=== PATIENT | female | born 1955 | race Two or more races ===

== ENCOUNTER 2020-11-17 12:56 | Emergency (ER) | payer OTHER, SELFPAY ==
[2020-11-17 13:02] VITALS: BP 120/57; PULSE 100; RESP 18; TEMP 36.9; O2SAT 96; BMI 32.3
[2020-11-17 13:15] LABS: Glucose, Whole Blood 187 mg/dL (60-115)
--- NOTE | 2020-11-17 17:47 | ED_ITS ---
HPI - Dizziness General Chief Complaint: General Medical Stated Complaint: dizzy n/v Time Seen by Provider: 11/17/20 17:44 Source: patient and family Mode of arrival: ambulatory Limitations: no limitations History of Present Illness HPI Narrative: Patient with history of Benign positional vertigo in the past been feeling dizzy today started earlier today with nausea and vomiting and off- balance no headache no fever no chills no significant abdominal pain no tinnitus no upper respiratory symptoms no focal weakness. Also patient noticed blood sugar was elevated to 269 no urinary complaints. Dizziness is positional get worse on head movement specially to the left Related Data Home Medications Medication Instructions Recorded Confirmed acetaminophen 650 mg 1,300 mg PO Q6H tab 03/05/20 07/24/20 tablet,extended release Previous Rx's Medication Instructions Recorded blood-glucose meter ([employer] #1 ea 02/01/20 Lite Meter) atorvastatin 10 mg tablet 10 mg PO DAILY 90 Days #90 tab 07/10/20 blood sugar diagnostic (FreeStyle #100 ea 07/10/20 Lite Strips) cholecalciferol (vitamin D3) 25 25 mcg PO DAILY 90 Days #90 tab 07/10/20 mcg (1,000 unit) tablet dulaglutide 0.75 mg/0.5 mL 0.75 mg SUBCUT QWEEK 30 Days #2.5 07/10/20 subcutaneous pen injector ml (Trulicity) lancets 28 gauge (FreeStyle #100 ea 07/10/20 Lancets) lisinopril 5 mg tablet 5 mg PO DAILY 90 Days #90 tab 07/10/20 metformin 1,000 mg tablet 1,000 mg PO BID 30 Days #60 tab 07/10/20 pantoprazole 40 mg tablet,delayed 40 mg PO DAILY 90 Days #90 tab 07/10/20 release pioglitazone 15 mg tablet 15 mg PO DAILY 90 Days #90 tab 07/10/20 sumatriptan succinate 25 mg tablet 25 mg PO ONCE PRN 30 Days #9 tab 07/10/20 fluoxetine 10 mg capsule 10 mg PO DAILY 90 Days #90 cap 07/17/20 loratadine 10 mg tablet (Allergy 10 mg PO DAILY 90 Days #90 tab 07/17/20 Relief (loratadine)) bacitracin zinc 500 unit/gram 1 appl TOPICAL BID 14 Days #14 g 07/24/20 topical ointment (Antibiotic (bacitracin zinc)) linagliptin 5 mg tablet (Tradjenta) 5 mg PO DAILY #90 tab 10/08/20 meclizine 12.5 mg tablet 12.5 mg PO TID PRN #30 tab 11/17/20 Allergies Allergy/AdvReac Type Severity Reaction Status Date / Time No Known Allergies Allergy Verified 11/17/20 13:02 Review of Systems Review of Systems: Yes all other systems are reviewed and are negative [facility] Past Medical History Medical History Anemia Diabetes mellitus Dizziness Dyslipidemia Essential hypertension GERD (gastroesophageal reflux disease) Hypovitaminosis D Surgical History History of tonsillectomy History of total abdominal hysterectomy Family History Family History Father No problems noted. Mother Hypertension Paternal Aunt Uterine cancer Sister Stomach cancer Sister Thyroid cancer Paternal Grandmother Diabetes Paternal Grandfather Diabetes Social History Social History Alcohol intake: never Patient Tobacco Use Status: Never used Tobacco Second Hand Smoke Exposure: No Advance Directives: No Physical Exam Vital Signs: Vital Signs: Last Vital Signs Temp 98.1 F 11/17/20 20:33 Pulse 89 11/17/20 20:33 Resp 16 11/17/20 20:33 BP 118/59 L 11/17/20 20:33 Pulse Ox 98 11/17/20 20:33 Body Mass Index 32.3 Appearance: Alert. Oriented X3. No acute distress. Eyes: PERRLA, No Nystagmus increased dizziness on head turning to the left side ENT: Pharynx normal. Oral Mucosa moist no temporal artery tenderness Neck: Normal inspection. Neck supple. CVS: Normal heart rate and rhythm. Pulses normal. Respiratory: No respiratory distress. Equal air entry bilateral, no wheezing/rales/rhonchi Abdomen: Soft and nontender. Bowel sounds are present, no mass palpable, no CVA tenderness Skin: Skin warm and dry. Normal skin color. Normal skin turgor. Extremities: No lower extremity edema. No calf tenderness Neuro: Oriented X 3. No motor deficit. No sensory deficit.No cerebellar signs , cranial nerves II-XII intact MDM - Dizziness MDM Narrative Medical decision making narrative: Patient symptom dizziness clinically peripheral benign position vertigo with similar history in the past patient improved after meclizine lab workup was negative patient ambulate in the ER will discharge patient home on meclizine Lab Data Attestation: I reviewed the patient's lab results. Result diagrams: 11/17/20 19:18 11/17/20 19:18 Labs: Lab Results 11/17/20 11/17/20 11/17/20 Range/Units 13:10 19:00 19:18 WBC 10.9 H (4.8-10.8) X10*3/uL RBC 4.35 (4.20-5.50) X10*6/uL Hgb 10.7 L (12.0-16.0) g/dl Hct 33.8 L (37-47) % MCV 77.7 L (80-98) fL MCH 24.6 L (27.0-33.0) pg MCHC 31.7 (31.0-35.0) g/dl RDW 17.2 H (11.0-16.0) % Plt Count 350 (160-400) X10*3/uL MPV 9.8 (9.4-12.3) fL Immature Gran % (Auto) 0.3 (0.0-0.4) % Neut % (Auto) 74.6 H (45-73) % Lymph % (Auto) 19.1 L (20-40) % Bollinger % (Auto) 5.0 (2-11) % Eos % (Auto) 0.6 (0-4) % Baso % (Auto) 0.4 (0-2) % Lymph # (Auto) 2.1 (1.2-4.9) X10*3/uL Bollinger # (Auto) 0.6 (0.1-1.2) X10*3/uL Eos # (Auto) 0.1 (0.0-0.4) X10*3/uL Baso # (Auto) 0.0 (0.0-0.2) X10*3/uL Abs Immat Gran (auto) 0.03 (0.00-0.03) X10*3/uL Absolute Neuts (auto) 8.2 (2.0-8.3) X10*3/uL Absolute Nucleated RBC 0.000 (0.0-0.012) X10*3/uL Nucleated RBC % (auto) 0.0 (0.0-0.2) /100WBC Sodium (135-145) mmol/L Potassium (3.3-5.1) mmol/L Chloride (96-108) mmol/L Carbon Dioxide (22-29) mmol/L Anion Gap (12-20) BUN (9-16) mg/dL Creatinine (0.5-1.4) mg/dL Estim Creat Clear Calc Estimated GFR POC Glucose 187 H 111 (60-115) mg/dL Random Glucose (60-115) mg/dL Calcium (8.4-10.2) mg/dL 11/17/20 Range/Units 19:18 WBC (4.8-10.8) X10*3/uL RBC (4.20-5.50) X10*6/uL Hgb (12.0-16.0) g/dl Hct (37-47) % MCV (80-98) fL MCH (27.0-33.0) pg MCHC (31.0-35.0) g/dl RDW (11.0-16.0) % Plt Count (160-400) X10*3/uL MPV (9.4-12.3) fL Immature Gran % (Auto) (0.0-0.4) % Neut % (Auto) (45-73) % Lymph % (Auto) (20-40) % Bollinger % (Auto) (2-11) % Eos % (Auto) (0-4) % Baso % (Auto) (0-2) % Lymph # (Auto) (1.2-4.9) X10*3/uL Bollinger # (Auto) (0.1-1.2) X10*3/uL Eos # (Auto) (0.0-0.4) X10*3/uL Baso # (Auto) (0.0-0.2) X10*3/uL Abs Immat Gran (auto) (0.00-0.03) X10*3/uL Absolute Neuts (auto) (2.0-8.3) X10*3/uL Absolute Nucleated RBC (0.0-0.012) X10*3/uL Nucleated RBC % (auto) (0.0-0.2) /100WBC Sodium 140 (135-145) mmol/L Potassium 5.0 (3.3-5.1) mmol/L Chloride 104 (96-108) mmol/L Carbon Dioxide 24 (22-29) mmol/L Anion Gap 17 (12-20) BUN 8 L (9-16) mg/dL Creatinine 0.76 (0.5-1.4) mg/dL Estim Creat Clear Calc 63.2 Estimated GFR > 60 POC Glucose (60-115) mg/dL Random Glucose 126 H (60-115) mg/dL Calcium 9.8 D (8.4-10.2) mg/dL Discharge Plan Discharge Clinical Impression: Benign paroxysmal positional vertigo Qualifiers: Laterality: bilateral Qualified Code(s): H81.13 - Benign paroxysmal vertigo, bilateral Patient Disposition: Home, Self-Care Instructions: Benign Paroxysmal Positional Vertigo (ED) Additional Instructions: care and cautions as adv meds as adv for dizziness Prescriptions: New meclizine 12.5 mg tablet 12.5 mg PO TID PRN (Reason: dizziness) Qty: 30 RF: 0 No Action (DME) blood-glucose meter [FreeStyle Lite Meter] Kit See Rx Instructions .ROUTE .MEDSUPPLY Qty: 1 RF: 0 atorvastatin 10 mg tablet 10 mg PO DAILY 90 Days Qty: 90 RF: 3 (DME) FreeStyle Lite Strips Strip See Rx Instructions .ROUTE .MEDSUPPLY Qty: 100 RF: 11 cholecalciferol (vitamin D3) 25 mcg (1,000 unit) tablet 25 mcg PO DAILY 90 Days Qty: 90 RF: 3 Trulicity 0.75 mg/0.5 mL pen injector 0.75 mg subcut QWEEK 30 Days Qty: 2.5 RF: 6 (DME) lancets [FreeStyle Lancets] 28 gauge misc See Rx Instructions .ROUTE .MEDSUPPLY Qty: 100 RF: 11 lisinopril 5 mg tablet 5 mg PO DAILY 90 Days Qty: 90 RF: 1 metformin 1,000 mg tablet 1,000 mg PO BID 30 Days Qty: 60 RF: 6 pantoprazole 40 mg tablet,delayed release (DR/EC) 40 mg PO DAILY 90 Days Qty: 90 RF: 3 pioglitazone 15 mg tablet 15 mg PO DAILY 90 Days Qty: 90 RF: 1 sumatriptan succinate 25 mg tablet 25 mg PO ONCE PRN (Reason: migraine headache) 30 Days Qty: 9 RF: 6 fluoxetine 10 mg capsule 10 mg PO DAILY 90 Days Qty: 90 RF: 2 loratadine [Allergy Relief (loratadine)] 10 mg tablet 10 mg PO DAILY 90 Days Qty: 90 RF: 3 Tradjenta 5 mg tablet 5 mg PO DAILY Qty: 90 RF: 0 acetaminophen 650 mg tablet extended release 1,300 mg PO Q6H RF: 0 bacitracin zinc [Antibiotic (bacitracin zinc)] 500 unit/gram ointment 1 appl topical BID 14 Days Qty: 14 RF: 2 Interventions: ED Discharge Assessment Last Done: 11/17/20 20:41 Discharge Date/Time: 11/17/20 20:42 Print Language: Irish
[2020-11-17] MEDS: 0.9 % Sodium Chloride 1,000 ML 999 ML IVCONT (19:19)
[2020-11-17] MEDS: ondansetron HCL 4 MG/2 ML VIAL IVPUSH (19:21)
[2020-11-17] MEDS: Meclizine HCl 25 MG TABLET PO (19:24)
[2020-11-17 19:28] LABS: MANUAL DIFF FLAG NO
[2020-11-17 19:29] LABS: Basophils Percent Auto 0.4 % (0-2); Eosinophils Absolute Auto 0.1 X10*3/uL (0.0-0.4); Eosinophils Percent Auto 0.6 % (0-4); Hematocrit 33.8 % (37-47); Hemoglobin 10.7 g/dl (12.0-16.0); Imm Gran Abs Auto 0.03 X10*3/uL (0.00-0.03); Imm Gran Pct Auto 0.3 % (0.0-0.4); Lymphocytes Absolute Auto 2.1 X10*3/uL (1.2-4.9); Lymphocytes Percent Auto 19.1 % (20-40); Mean Corpuscular HGB Conc 31.7 g/dl (31.0-35.0); Mean Corpuscular Hemoglobin 24.6 pg (27.0-33.0); Mean Corpuscular Volume 77.7 fL (80-98); Mean Platelet Volume 9.8 fL (9.4-12.3); Monocytes Absolute Auto 0.6 X10*3/uL (0.1-1.2); Neutrophils Absolute Auto 8.2 X10*3/uL (2.0-8.3); Neutrophils Percent Auto 74.6 % (45-73); Platelet Count 350 X10*3/uL (160-400); Red Blood Count 4.35 X10*6/uL (4.20-5.50); Red Cell Distribution Width 17.2 % (11.0-16.0); White Blood Count 10.9 X10*3/uL (4.8-10.8)
[2020-11-17 19:30] LABS: Glucose, Whole Blood 111 mg/dL (60-115)
[2020-11-17 19:41] LABS: Anion Gap 17 (12-20); Blood Urea Nitrogen 8 mg/dL (9-16); Calcium 9.8 mg/dL (8.4-10.2); Carbon Dioxide 24 mmol/L (22-29); Chloride 104 mmol/L (96-108); Creatinine Clr Calc Pharmacy 63.2; Estimated Glomerular Filt Rate > 60; Glucose Random 126 mg/dL (60-115); Sodium 140 mmol/L (135-145)
[2020-11-17 20:33] VITALS: BP 118/59; PULSE 89; RESP 16; TEMP 36.7; O2SAT 98
== END 2020-11-17 20:42 | disposition home or self-care (01) ==
PROVIDERS: Emergency Provider Internal Medicine; PCP Internal Medicine
DX: H81.13 Benign paroxysmal vertigo, bilateral (principal); R11.2 Nausea with vomiting, unspecified; Z79.899 Other long term (current) drug therapy
CPT/HCPCS: 36415; 80048; 82947; 85025; 96361; 96374; 99284; J2405

== ENCOUNTER 2020-12-24 13:00 | Outpatient (RCR) | payer OTHER, SELFPAY ==
[2020-12-17 13:53] VITALS: BP 116/80; PULSE 91
--- NOTE | 2020-12-17 14:55 | MHC.PT.EP ---
[facility] [place] Office [place] Office [place] Office [address] Corey Puckett [address] [phone] F: [phone] F: [phone] F: [phone] F: [phone] Physical Therapy Plan of Care Date of Evaluation: Date of Surgery: NA Diagnosis: vertigo Assessment: Shruthi presents with s/s consistent with BPPV and hypofunction of vestibular system. Upon exam we were able to perform testing for right posterior canalithiasis and performed canalith repositioning maneuver. Due to increased nausea we did not retest this session. Next we will plan t o assess other canals and progress balance assessment. Pt is a good candidate for skilled PT due to age, potential remediation of impairments, typical disease/condition progression and prognosis, comorbidities, and motivation. pt would benefit from tailored program of therapeutic activities, functional training, gait training, postural education, neuromuscular re-education, and modalities as needed. Frequency and Duration: The patient will be seen 2 x week for 3 weeks Short Term Goals: 1. Pt will be (-) for nystagmus of reports of vertigo in all diagnostic directions B to resolutions of BPPV in 2 weeks [facility] Specialist Goals: 5 weeks: 1. I with HEP 2. Improve DGI to 20/24 3. Pt to be able to functionally move in all planes without provocation of dizziness and return to PLOF in 4 weeks 4. Pt to be educated on sx and indications to return to therapy when needed Treatment Plan: Modalities to reduce pain, spasms and effusion. Manual therapy to restore motion and function. Therapeutic exercise to improve strength and flexibility. Neuromuscular re-education for posture and balance. Therapeutic activities to return to functional activities of daily living. Electronically signed by: Pam Escoto PT, DPT Please sign and return to therapist. Thank you for your referral.
--- NOTE | 2020-12-24 15:25 | MHC.PT.DC ---
[facility] [place] Office [place] Office [place] Office [address] Corey Puckett [address] [phone] F: [phone] F: [phone] F: [phone] F: [phone] Physical Therapy Discharge Report Diagnosis: vertigo Date of Surgery: NA Date of Evaluation: 12/17/20 Date of Discharge: 12/24/20 Treatments to Date: 3 Cancellations to Date: 0 No Shows to Date: 0 Discharge Status: Achieved Goals Improved Function Independent with HEP Discharge Summary: Pt negative for bppv. Pt was not provoked with VOR activity. The pt was educated about mechanisms of balance. However at this time she did not wish to participate in balance therapy. She said, I would like to think about it Pt d/c at this time from skilled PT. Electronically signed by: Vi Dia PT DPT Please sign and return to therapist. Thank you for your referral.
== END 2020-12-24 15:24 | disposition home or self-care (01) ==
LOC: HO.PT 13:00
PROVIDERS: PCP Internal Medicine; Visit Provider Internal Medicine Medical Oncology
DX: R42 Dizziness and giddiness (principal)
CPT/HCPCS: 95992; 97112; 97162

== ENCOUNTER 2021-04-05 08:22 | Outpatient (REF) | payer OTHER, SELFPAY ==
[2021-04-05 09:20] LABS: Baso%MD 0.4 %; Eos%MD 3.4 %; Hematocrit 34.1 % (37.0-47.0); Hemoglobin 10.7 g/dl (12.0-16.0); IG%MD 0.3 %; Lymph%MD 24.3 %; Mean Corpuscular HGB Conc 31.4 g/dl (31.0-35.0); Mean Corpuscular Hemoglobin 25.1 pg (27.0-33.0); Mean Platelet Volume 9.8 fL (9.4-12.3); Mono%MD 6.4 %; Neut%MD 65.2 %; Platelet Count 332 X10*3/uL (160-400); Red Blood Count 4.26 X10*6/uL (4.20-5.50); Red Cell Distribution Width 15.6 % (11.0-16.0)
[2021-04-05 09:42] LABS: Alanine Aminotransferase < 6 U/L (0-31); Albumin Level 3.7 g/dL (3.5-5.0); Alkaline Phosphatase 82 U/L (39-117); Anion Gap 11 (12-20); Aspartate Amino Transferase 9 U/L (5-31); Bilirubin Total 0.2 mg/dL (0.0-1.0); Blood Urea Nitrogen 10 mg/dL (9-16); Calcium 9.7 mg/dL (8.4-10.2); Carbon Dioxide 31 mmol/L (22-29); Chloride 101 mmol/L (96-108); Cholesterol 132 mg/dL; Estimated Glomerular Filt Rate > 60; Glucose Fasting 132 mg/dL (60-99); HDL Cholesterol 44 mg/dL; Iron 34 mcg/dL (30-160); LDL Cholesterol Calculated 58 mg/dl; Percent Iron Saturation 10 % (15-50); Sodium 138 mmol/L (135-145); Total Iron Binding Capacity 344 mcg/dL (228-428); Total Protein 7.3 g/dL (6.5-8.0); Triglycerides 151 mg/dL; Unsaturated Iron Binding 310 ug/dL
[2021-04-05 10:12] LABS: Band Neutrophils Percent 0 % (3-5); Eosinophils Absolute Manual 0.1 X10*3/uL (0.0-0.4); Eosinophils Percent Manual 2 % (0-4); Lymphocytes Absolute Manual 1.6 X10*3/uL (1.2-4.9); Lymphocytes Percent Manual 23 % (20-40); Monocytes Absolute Manual 0.2 X10*3/uL (0.1-1.2); Monocytes Percent Manual 3 % (2-11); Neutrophils Percent Manual 72 % (45-73)
[2021-04-05 10:13] LABS: Hypochromasia 2+ (15-30) /OIF; Platelet Estimate NORMAL (NORMAL); Platelet Morphology Comment NORMAL; RBC Morphology NOTED
[2021-04-05 13:17] LABS: Creatinine Urine 65.72 mg/dL; Microalbumin Urine < 5.0 mg/L
[2021-04-10 17:41] LABS: Vitamin D 25-OH, D2 <4 ng/mL; Vitamin D 25-OH, D3 48 ng/mL; Vitamin D 25-OH, Total 48 ng/mL (30-100)
== END 2021-04-05 08:23 | disposition home or self-care (01) ==
LOC: HO.LAB 08:22
PROVIDERS: Internal Medicine Medical Oncology; PCP Internal Medicine; Visit Provider Internal Medicine
DX: D72.10 Eosinophilia, unspecified (principal); E11.9 Type 2 diabetes mellitus without complications; D64.9 Anemia, unspecified; E78.5 Hyperlipidemia, unspecified; E55.9 Vitamin D deficiency, unspecified
CPT/HCPCS: 36415; 80053; 80061; 82043; 82306; 83540; 85007; 85025; 85027

== ENCOUNTER 2021-09-04 09:20 | Outpatient (REF) | payer OTHER, SELFPAY ==
--- NOTE | ~2021-09-04 | MM_ITS ---
EXAMINATION: MM SCREENING DIGITAL BREAST TOMOSYNTHESIS, BILATERAL CLINICAL INFORMATION: Screening. Asymptomatic. No known family history breast cancer. The lifetime risk of breast cancer based on the Tyrer-Cuzick Model is 3%. COMPARISON: Mammography: 11/02/2018, 06/26/2017, 05/29/2016 TECHNIQUE: Digital breast tomosynthesis is performed in both the craniocaudal and mediolateral oblique views along with computer-aided detection (CAD). Synthesized 2D images are generated from the tomosynthesis. FINDINGS: The breasts are almost entirely fatty (ACR BI-RADS breast composition Category a). Background stromal markings are stable. No interval mass or developing density. Incidental intramammary node again seen posterior upper outer left breast and some stable low right axillary tail nodes again noted. No significant changes. No abnormal calcifications. The skin contours are smooth. MM/MM tomosynthesis screening BI IMPRESSION: No mammographic evidence of malignancy. ASSESSMENT: BI-RADS 2: Benign RECOMMENDATION: Routine annual mammography screening. This patient's information was entered into a reminder system with a target due date for their next mammogram.
== END 2021-09-04 09:21 | disposition home or self-care (01) ==
LOC: HO.MAMMO 09:20
PROVIDERS: Visit Provider Internal Medicine
DX: Z12.31 Encounter for screening mammogram for malignant neoplasm of breast (principal)
CPT/HCPCS: 77063; 77067

== ENCOUNTER 2022-01-06 08:35 | Outpatient (REF) | payer OTHER, SELFPAY ==
[2022-01-06 10:46] LABS: Creatinine Urine 37.45 mg/dL; Microalbumin Urine < 5.0 mg/L
== END 2022-01-06 08:36 | disposition home or self-care (01) ==
LOC: HO.LAB 08:35
PROVIDERS: PCP Internal Medicine; Visit Provider Internal Medicine
DX: E55.9 Vitamin D deficiency, unspecified (principal); E11.9 Type 2 diabetes mellitus without complications; E78.5 Hyperlipidemia, unspecified; D72.10 Eosinophilia, unspecified
CPT/HCPCS: 36415; 82043; 82306

== ENCOUNTER 2022-05-19 08:30 | Outpatient (REF) | payer OTHER, SELFPAY ==
[2022-05-19 10:06] LABS: Alanine Aminotransferase 7 U/L (0-31); Albumin Level 3.5 g/dL (3.5-5.0); Alkaline Phosphatase 71 U/L (39-117); Anion Gap 13 (12-20); Aspartate Amino Transferase 8 U/L (5-31); Bilirubin Total 0.2 mg/dL (0.0-1.0); Blood Urea Nitrogen 16 mg/dL (9-16); Calcium 8.9 mg/dL (8.4-10.2); Carbon Dioxide 27 mmol/L (22-29); Chloride 104 mmol/L (96-108); Cholesterol 143 mg/dL; Estimated Glomerular Filt Rate > 60; Glucose Fasting 139 mg/dL (60-99); HDL Cholesterol 47 mg/dL; LDL Cholesterol Calculated 68 mg/dl; Potassium 4.9 mmol/L (3.3-5.1); Sodium 139 mmol/L (135-145); Total Protein 6.5 g/dL (6.5-8.0); Triglycerides 142 mg/dL
[2022-05-19 10:13] LABS: Vitamin D 25-OH Total 53.5 ng/mL (>30)
[2022-05-19 10:35] LABS: Creatinine Urine 48.31 mg/dL; Microalbumin Urine < 5.0 mg/L
== END 2022-05-19 08:31 | disposition home or self-care (01) ==
LOC: HO.LAB 08:30
PROVIDERS: PCP Internal Medicine; Visit Provider Internal Medicine
DX: E55.9 Vitamin D deficiency, unspecified (principal); E11.9 Type 2 diabetes mellitus without complications; E78.5 Hyperlipidemia, unspecified; M51.36 Other intervertebral disc degeneration, lumbar region
CPT/HCPCS: 36415; 80053; 80061; 82043; 82306

== ENCOUNTER 2022-09-16 08:09 | Outpatient (REF) | payer OTHER, SELFPAY ==
[2022-09-16 09:32] LABS: Alanine Aminotransferase 5 U/L (0-31); Albumin Level 3.6 g/dL (3.5-5.0); Alkaline Phosphatase 71 U/L (39-117); Anion Gap 9 (12-20); Aspartate Amino Transferase 9 U/L (5-31); Bilirubin Total 0.2 mg/dL (0.0-1.0); Blood Urea Nitrogen 14 mg/dL (9-16); Calcium 9.2 mg/dL (8.4-10.2); Carbon Dioxide 30 mmol/L (22-29); Chloride 104 mmol/L (96-108); Cholesterol 145 mg/dL; Estimated Glomerular Filt Rate > 60; Glucose Fasting 118 mg/dL (60-99); HDL Cholesterol 48 mg/dL; LDL Cholesterol Calculated 73 mg/dl; Potassium 4.1 mmol/L (3.3-5.1); Sodium 139 mmol/L (135-145); Total Protein 7.3 g/dL (6.5-8.0); Triglycerides 123 mg/dL
[2022-09-16 09:47] LABS: Vitamin D 25-OH Total 52.5 ng/mL (>30)
[2022-09-16 11:44] LABS: Creatinine Urine 51.02 mg/dL; Microalbum/Creatinine Ratio Ur 13.7 ug/mg cr
== END 2022-09-16 08:10 | disposition home or self-care (01) ==
LOC: HO.LAB 08:09
PROVIDERS: PCP Internal Medicine; Visit Provider Internal Medicine
DX: E11.9 Type 2 diabetes mellitus without complications (principal); E55.9 Vitamin D deficiency, unspecified; E78.5 Hyperlipidemia, unspecified
CPT/HCPCS: 36415; 80053; 80061; 82043; 82306

== ENCOUNTER 2022-09-17 11:13 | Outpatient (REF) | payer OTHER, SELFPAY ==
--- NOTE | ~2022-09-17 | MM_ITS ---
EXAMINATION: MM SCREENING DIGITAL BREAST TOMOSYNTHESIS, BILATERAL CLINICAL INFORMATION: Screening. Asymptomatic. The lifetime risk of breast cancer based on the Tyrer-Cuzick Model is 3.9%. COMPARISON: Mammography: 11/02/2018, 06/26/2017, 05/28/2016, and dating back to 2013. TECHNIQUE: Digital breast tomosynthesis is performed in both the craniocaudal and mediolateral oblique views along with computer-aided detection (CAD). Synthesized 2D images are generated from the tomosynthesis. FINDINGS: There are scattered areas of fibroglandular density (ACR BI-RADS breast composition Category b). There are no suspicious masses, suspicious grouped calcifications, or areas of architectural distortion. The parenchymal pattern is stable from prior exams. MM/MM tomosynthesis screening BI IMPRESSION: No mammographic evidence of malignancy. ASSESSMENT: BI-RADS BI-RADS 1 - Negative RECOMMENDATION: Routine annual mammography screening. 1 year F/U This examination should not preclude the clinical evaluation of a suspicious palpable abnormality. This patient's information was entered into a reminder system with a target due date for their next mammogram.
== END 2022-09-17 11:14 | disposition home or self-care (01) ==
LOC: HO.MAMMO 11:13
PROVIDERS: PCP Internal Medicine; Visit Provider Internal Medicine
DX: Z12.31 Encounter for screening mammogram for malignant neoplasm of breast (principal)
CPT/HCPCS: 77063; 77067

== ENCOUNTER → 2022-09-17 11:30 | Outpatient (BNV) | payer OTHER, SELFPAY | PROVIDERS: PCP Internal Medicine; Visit Provider Radiology Diagnostic Radiology | DX: Z12.31 Encounter for screening mammogram for malignant neoplasm of breast (principal) | CPT/HCPCS: 77063; 77067 ==

== ENCOUNTER 2022-09-23 13:44 | Outpatient (AMB) | payer OTHER, SELFPAY ==
--- NOTE | 2022-09-23 13:49 | MHC.PC.OV ---
Vital Signs 09/23/22 13:50 Height 4 ft 11 in Weight 159 lb BMI 32.1 BP 110/62 Blood Pressure Location Lt brachial Position Sitting Intake Visit Reasons: bp,dm Intake Note: Patient here for a follow up BP, DM Radiation Physicist Required: No Accompanied by: Spouse Allergies No Known Allergies Allergy (Verified 09/23/22 14:04) Medication List - Last Reconciled 09/23/22 by Ginger Monique MD acetaminophen ER 1,300 mg PO Q6H atorvastatin 10 mg PO DAILY 90 days blood sugar diagnostic (FreeStyle Lite Strips) Use test strip twice a day as needed blood-glucose meter (FreeStyle Lite Meter kit) As directed cholecalciferol (vitamin D3) 25 mcg PO DAILY 90 days dulaglutide (Trulicity) 1.5 mg (0.5 mL) subcut QWEEK 90 days ferrous sulfate 325 mg PO DAILY 90 days fluoxetine 10 mg PO DAILY 90 days incontinence pad, liner, disp Use 1 pad twice a day lancets (FreeStyle Lancets) Use lancet twice a day as needed linagliptin (Tradjenta) 5 mg PO DAILY lisinopril 5 mg PO DAILY 90 days loratadine (Allergy Relief (loratadine)) 10 mg PO DAILY 90 days meclizine 12.5 mg PO TID PRN 30 days metformin 1,000 mg PO BID 30 days pantoprazole 40 mg PO DAILY 90 days pioglitazone 30 mg PO DAILY 90 days sumatriptan succinate 25 mg PO ONCE PRN 30 days [wheelchair As directed] Tobacco use date assessed: 05/22/22 Fall risk assessment: No Falls in past year Last assessed Fall Risk: 09/23/22 Dental Screening Dental Screen Date: 09/23/22 Did you have a dental visit in the last 12 months?: Yes Did you have a dental problem in the last 6 months where you did not have access to dental care?: No Was dental information given to patient?: Patient has dentist HPI HPI Comments History of Present Illness Details This is a 67-year-old female with diabetes mellitus type 2, dyslipidemia, GERD and mild recurrent major depression that comes today for follow-up on her conditions. She is accompanied by and is currently in a wheelchair to be use for appointments or when traveling long distance. A1c within goal. LDL close to goal and I recommend to take atorvastatin every night. GERD stable with medications. Depression stable with SSRIs. Denies any chest pain or shortness of breath. Complains of bilateral leg weakness that has been present for over a year. [facility] Medical History Anemia BPPV (benign paroxysmal positional vertigo) Diabetes mellitus Dizziness Dyslipidemia Essential hypertension GERD (gastroesophageal reflux disease) Hypovitaminosis D Lumbar degenerative disc disease Mild recurrent major depression Urge urinary incontinence Surgical History History of tonsillectomy History of total abdominal hysterectomy Family History Father No problems noted. Mother Hypertension Paternal Aunt Uterine cancer Sister Stomach cancer Sister Thyroid cancer Paternal Grandmother Diabetes Paternal Grandfather Diabetes Social History Household Members: Spouse Housing: Apartment Are you a primary care tech to a significant other at home: No Do you presently have visiting nurse or other home services: Yes Alcohol intake: never Patient Tobacco Use Status: Never used Tobacco e-Cigarette/Vaping Use: Never Used Second Hand Smoke Exposure: No service: No Current occupational status: disabled Cognitive needs: Yes Hearing needs: No Vision needs: Yes Questionnaire Thrive Questionnaire Date Thrive assessed: 05/22/22 TUNDE-7 AMB Questionnaire TUNDE-7 Date TUNDE - 7 assessed: 05/22/22 Source: Developed by Drs. Tj Romano, Shawna Marcano, Kirt Bailey and colleagues, with an educational georgie from [employer] ([employer]). Review of Systems Const All systems reviewed & are unremarkable except as noted in HPI and below Eyes Reports no additional complaints, Denies change in vision and Denies other visual disturbances Card Denies chest pain at rest, Denies chest pain with activity, Denies edema, Denies irregular heart rhythm, Denies claudication, Denies dyspnea, Denies dyspnea on exertion, Denies orthopnea, Denies paroxysmal nocturnal dyspnea and Denies slow heart rate Resp Denies cough, Denies dyspnea and Denies dyspnea on exertion GI Denies abdominal pain, Denies change in bowel habits, Denies excessive flatus, Denies nausea and Denies vomiting Denies urinary incontinence, Denies urinary hesitancy and Denies urinary urgency Musc Denies abnormal gait, Denies atrophy, Denies deformity and Denies limited range of motion Skin/Breast Denies bleeding lesions, Denies changing lesions and Denies rash Neuro Denies abnormal gait and Denies lack of coordination Physical exam (Primary Care) Vital Signs: Last Vital Signs BP 110/62 09/23/22 13:50 BMI result Body Mass Index 32.1 Tobacco/Smoking Status: Tobacco use Status Tobacco use date assessed 05/22/22 09/23/22 13:59 Patient Tobacco Use Status Never used Tobacco 09/23/22 13:59 e-Cigarette/Vaping Use Never Used 09/23/22 13:59 Thrive Assessment: Date of Thrive Assessment Date Thrive assessed 05/22/22 09/23/22 13:59 Eyes General: appearance normal, both eyes and all related structures Eyelids: Yes eyelids normal Conjunctivae: conjunctivae normal Neck Neck: Yes normal visual inspection and Yes supple Resp Effort & Inspection: normal respiratory effort Auscultation: clear to auscultation bilaterally Cardio Jugular venous distension: no JVD Rate: regular rate Rhythm: regular rhythm Heart sounds: S1 normal heart sound present and S2 normal heart sound present Extrem General: Yes full ROM Results AMB Hemoglobin A1c AMB Hemoglobin A1c 6.8 % Last Edit by CHRIS Womack on 09/23/22 14:02 Results Reviewed Results Reviewed: Laboratory Last Values Hgb A1c (Clinic) 6.8 % (4.0-6.0) H 09/23/22 13:48 Assessment and Plan Assessment & Plan (1) Diabetes mellitus: Code(s): E11.9 - Type 2 diabetes mellitus without complications Qualifiers: Diabetes mellitus type: type 2 Diabetes mellitus [facility] insulin use: without [facility] use Diabetes mellitus complication status: without complication Qualified Code(s): E11.9 - Type 2 diabetes mellitus without complications Plan: Continue Trulicity, metformin, Tradjenta and Actos. A1c goal is equal or less than 7%. (2) GERD (gastroesophageal reflux disease): Code(s): K21.9 - Gastro-esophageal reflux disease without esophagitis Qualifiers: Esophagitis presence: esophagitis presence not specified Qualified Code(s): K21.9 - Gastro-esophageal reflux disease without esophagitis Plan: Continue PPIs as needed (3) Mild recurrent major depression: Code(s): F33.0 - Major depressive disorder, recurrent, mild Plan: Continue SSRIs (4) Dyslipidemia: Code(s): E78.5 - Hyperlipidemia, unspecified Plan: Continue statin. LDL goal is less than 70 Orders: Orders Complete Blood Count Auto Diff Today D64.9 - Anemia, unspecified IRON PROFILE Today D64.9 - Anemia, unspecified Vitamin D 25-OH Total Today E55.9 - Vitamin D deficiency, unspecified Lipid Panel Today E78.5 - Hyperlipidemia, unspecified Microalbumin, Random (w Creat) Today E11.9 - Type 2 diabetes mellitus without complications Comprehensive [place]. 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
[2022-09-23 13:50] VITALS: BP 110/62; BMI 32.1
== END 2022-09-23 14:17 | disposition home or self-care (01) ==
PROVIDERS: PCP Internal Medicine; Visit Provider Internal Medicine
DX: E11.9 Type 2 diabetes mellitus without complications (principal); K21.9 Gastro-esophageal reflux disease without esophagitis; F33.0 Major depressive disorder, recurrent, mild; E78.5 Hyperlipidemia, unspecified
CPT/HCPCS: 83036; 99214

== ENCOUNTER 2023-01-19 12:40 | Outpatient (AMB) | payer OTHER, SELFPAY ==
--- NOTE | 2023-01-19 12:51 | MHC.PC.OV ---
Vital Signs 01/19/23 12:54 Height 4 ft 11 in Weight 160 lb BMI 32.3 BP 112/76 Blood Pressure Location Lt brachial Position Sitting Intake Visit Reasons: physical Intake Note: Patient here for a physical exam, c/o left shoulder pain Special Education Curriculum Specialist Required: No Accompanied by: Spouse Allergies No Known Allergies Allergy (Verified 01/19/23 13:11) Medication List - Last Reconciled 01/19/23 by Ginger Monique MD acetaminophen ER 1,300 mg PO Q6H [adult diapers As directed] atorvastatin 10 mg PO DAILY 90 days blood sugar diagnostic ([employer] Ultra Test strips) test once per day blood-glucose meter ([employer] Ultra2 Meter) test once per day cholecalciferol (vitamin D3) 25 mcg PO DAILY 90 days dulaglutide (Trulicity) 1.5 mg (0.5 mL) subcut QWEEK 90 days ferrous sulfate 325 mg PO DAILY 90 days fluoxetine 10 mg PO DAILY 90 days incontinence pad, liner, disp Use 1 pad twice a day lancets ([employer] UltraSoft 2 Lancet) test once per day linagliptin (Tradjenta) 5 mg PO DAILY lisinopril 5 mg PO DAILY 90 days loratadine (Allergy Relief (loratadine)) 10 mg PO DAILY 90 days magnesium 250 mg PO DAILY 90 days meclizine 12.5 mg PO TID PRN 30 days metformin 1,000 mg PO BID 30 days pantoprazole 40 mg PO DAILY 90 days pioglitazone 30 mg PO DAILY 90 days sumatriptan succinate 25 mg PO ONCE PRN 30 days [wheelchair with bigger wheels As directed] Tobacco use date assessed: 05/22/22 Fall risk assessment: No Falls in past year Last assessed Fall Risk: 01/19/23 Dental Screening Dental Screen Date: 01/19/23 Did you have a dental visit in the last 12 months?: No Did you have a dental problem in the last 6 months where you did not have access to dental care?: No Was dental information given to patient?: Patient has dentist HPI HPI Comments History of Present Illness Details This is a 68-year-old female with diabetes mellitus type 2 1 mild recurrent major depression that comes for her physical exam. A1c elevated and I will increase Actos from 30 mg to 45 mg. Depression stable with medications. Last mammogram was August 2022. Last Cologuard was 2020 and this will be repeated. Use a wheelchair to be transported. Would like a wheelchair with peak will also so that she can move it herself. [facility] Medical History Mild recurrent major depression Urge urinary incontinence Lumbar degenerative disc disease BPPV (benign paroxysmal positional vertigo) Dizziness Essential hypertension Hypovitaminosis D Dyslipidemia Anemia GERD (gastroesophageal reflux disease) Diabetes mellitus Surgical History History of total abdominal hysterectomy History of tonsillectomy Family History (Updated 01/19/23 @ 13:12 by Ginger Monique MD) Father Leukemia Mother Hypertension Colon cancer Paternal Aunt Uterine cancer Sister Stomach cancer Sister Thyroid cancer Paternal Grandmother Diabetes Paternal Grandfather Diabetes Household Members: Spouse Housing: Apartment Are you a primary acute care surgeon to a significant other at home: No Do you presently have visiting nurse or other home services: Yes Alcohol intake: never Patient Tobacco Use Status: Never used Tobacco e-Cigarette/Vaping Use: Never Used Second Hand Smoke Exposure: No service: No Current occupational status: disabled Cognitive needs: Yes Hearing needs: No Vision needs: Yes Questionnaire Thrive Questionnaire Date Thrive assessed: 05/22/22 TUNDE-7 AMB Questionnaire TUNDE-7 Date TUNDE - 7 assessed: 05/22/22 Source: Developed by Drs. Tj Romano, Shawna Marcano, Kirt Bailey and colleagues, with an educational georgie from [employer]. Review of Systems Const All systems reviewed & are unremarkable except as noted in HPI and below Eyes Reports no additional complaints, Denies change in vision and Denies other visual disturbances Card Denies chest pain at rest, Denies chest pain with activity, Denies edema, Denies irregular heart rhythm, Denies claudication, Denies dyspnea, Denies dyspnea on exertion, Denies orthopnea, Denies paroxysmal nocturnal dyspnea and Denies slow heart rate Resp Denies cough, Denies dyspnea and Denies dyspnea on exertion GI Denies abdominal pain, Denies change in bowel habits, Denies excessive flatus, Denies nausea and Denies vomiting Denies urinary incontinence, Denies urinary hesitancy and Denies urinary urgency Musc Denies abnormal gait, Denies atrophy, Denies deformity and Denies limited range of motion Skin/Breast Denies bleeding lesions, Denies changing lesions and Denies rash Neuro Denies abnormal gait and Denies lack of coordination Physical exam (Primary Care) Vital Signs: Last Vital Signs BP 112/76 01/19/23 12:54 BMI result Body Mass Index 32.3 Tobacco/Smoking Status: Tobacco use Status Tobacco use date assessed 05/22/22 01/19/23 12:54 Patient Tobacco Use Status Never used Tobacco 01/19/23 12:54 e-Cigarette/Vaping Use Never Used 01/19/23 12:54 Thrive Assessment: Date of Thrive Assessment Date Thrive assessed 05/22/22 01/19/23 12:54 Const Orientation/consciousness: patient oriented x3 Limitations: wheelchair HENMT Head: Yes normal to inspection, Yes normocephalic and Yes atraumatic Ears: external ears normal Eyes General: appearance normal, both eyes and all related structures Eyelids: Yes eyelids normal Conjunctivae: conjunctivae normal Neck Neck: Yes normal visual inspection and Yes supple Resp Effort & Inspection: normal respiratory effort Auscultation: clear to auscultation bilaterally Cardio Jugular venous distension: no JVD Rate: regular rate Rhythm: regular rhythm Heart sounds: S1 normal heart sound present and S2 normal heart sound present GI Inspection: Yes normal to inspection Palpation (GI): Soft to palpation and nontender Auscultation: normal bowel sounds Skin General skin exam: no rashes or lesions noted Neuro General: patient oriented x3 and no focal motor deficits Psych Appearance: grossly normal Office Procedures Flu Questionnaire Does the patient have a severe egg allergy?: No Results AMB Hemoglobin A1c AMB Hemoglobin A1c 8.0 % Last Edit by CHRIS Womack on 01/19/23 13:05 Immunizations flu vacc [id number] 6mos up(PF) 60 mcg(15 mcgx4)/0.5 mL IM syringe Performing Provider: Ginger Monique MD [facility] Documented (not given) by: CHRIS Womack on 01/19/23 13:04 Reason Not Given: Patient Refused Results Reviewed Results Reviewed: Laboratory Last Values Hgb A1c (Clinic) 8.0 % (4.0-6.0) H 01/19/23 12:51 Assessment and Plan Assessment & Plan (1) Physical exam: Code(s): Z00.00 - Encounter for general adult medical examination without abnormal findings Plan: Repeat in a year. (2) Mild recurrent major depression: Code(s): F33.0 - Major depressive disorder, recurrent, mild Plan: Continue fluoxetine. (3) Diabetes mellitus: Code(s): E11.9 - Type 2 diabetes mellitus without complications Qualifiers: Diabetes mellitus type: type 2 Diabetes mellitus senior living insulin use: without senior living use Diabetes mellitus complication status: without complication Qualified Code(s): E11.9 - Type 2 diabetes mellitus without complications Plan: Continue Trulicity and metformin. A1c goal is equal or less than 7%. Increase Actos from 30-45 mg. Orders: Orders AMB Hemoglobin A1c Today E11.9 - Type 2 diabetes mellitus without complications Influenza [id number] Immunization Today Z23 - Encounter for immunization Referrals Cologuard Test Z12.11 - Encounter for screening for malignant neoplasm of colon, Z12.12 - Encounter for screening for malignant neoplasm of rectum Medications: New pioglitazone 45 mg PO DAILY 90 days 90 tabs 1RF diclofenac sodium 1% (Aleve (diclofenac)) apply to single elbow, wrist or hand; for hand includes palm/fingers/back of hand 2 grams topical QID 30 days 100 grams 0RF Discontinued pioglitazone Discontinued Reason: Patient Completed Course 30 mg PO DAILY 90 days 90 tabs 1RF E11.9 - Type 2 diabetes mellitus without complications Coding Level of Care Code Est Pt Prev Care >65y(29670) Diagnoses Physical exam Z00.00 Mild recurrent major depression F33.0 Type 2 diabetes mellitus without complication, without long-term current use of insulin E11.9 Diabetes mellitus type: type 2 Diabetes mellitus senior living insulin use: without watermaster use Diabetes mellitus complication status: without complication Time Spent (min) 32
[2023-01-19 12:54] VITALS: BP 112/76; BMI 32.3
== END 2023-01-19 13:20 | disposition home or self-care (01) ==
PROVIDERS: Visit Provider Internal Medicine
DX: Z00.00 Encounter for general adult medical examination without abnormal findings (principal); F33.0 Major depressive disorder, recurrent, mild; E11.9 Type 2 diabetes mellitus without complications; Z23 Encounter for immunization
CPT/HCPCS: 83036; 99397

== ENCOUNTER 2023-05-05 08:30 | Outpatient (REF) | payer OTHER, SELFPAY ==
[2023-05-05 08:41] LABS: MANUAL DIFF FLAG NO
[2023-05-05 09:19] LABS: Basophils Percent Auto 0.6 % (0-2); Eosinophils Absolute Auto 0.3 X10*3/uL (0.0-0.4); Eosinophils Percent Auto 3.5 % (0-4); Hematocrit 31.3 % (37.0-47.0); Imm Gran Abs Auto 0.02 X10*3/uL (0.00-0.03); Imm Gran Pct Auto 0.3 % (0.0-0.4); Lymphocytes Absolute Auto 2.1 X10*3/uL (1.2-4.9); Lymphocytes Percent Auto 28.5 % (20-40); Mean Corpuscular HGB Conc 31.9 g/dl (31.0-35.0); Mean Corpuscular Hemoglobin 25.3 pg (27.0-33.0); Mean Corpuscular Volume 79.2 fL (80.0-98.0); Mean Platelet Volume 9.4 fL (9.4-12.3); Monocytes Absolute Auto 0.4 X10*3/uL (0.1-1.2); Monocytes Percent Auto 6.1 % (2-11); Neutrophils Absolute Auto 4.4 x10*3/uL (2.0-8.3); Platelet Count 339 X10*3/uL (160-400); Red Blood Count 3.95 X10*6/uL (4.20-5.50); Red Cell Distribution Width 16.3 % (11.0-16.0); White Blood Count 7.2 X10*3/uL (4.8-10.8)
[2023-05-05 10:09] LABS: Alanine Aminotransferase < 5 U/L (0-31); Albumin Level 3.6 g/dL (3.5-5.0); Alkaline Phosphatase 75 U/L (39-117); Anion Gap 9 (12-20); Aspartate Amino Transferase 9 U/L (5-31); Bilirubin Total 0.2 mg/dL (0.0-1.0); Blood Urea Nitrogen 13 mg/dL (9-16); Calcium 9.4 mg/dL (8.4-10.2); Carbon Dioxide 28 mmol/L (22-29); Chloride 105 mmol/L (96-108); Cholesterol 121 mg/dL (<200); Estimated Glomerular Filt Rate > 60; Glucose Fasting 122 mg/dL (60-99); HDL Cholesterol 50 mg/dL (>40); Iron 35 mcg/dL (30-160); LDL Cholesterol Calculated 48 mg/dL (<100); Percent Iron Saturation 12 % (15-50); Potassium 4.3 mmol/L (3.3-5.1); Sodium 138 mmol/L (135-145); Total Iron Binding Capacity 281 mcg/dL (228-428); Total Protein 7.7 g/dL (6.5-8.0); Triglycerides 117 mg/dL (<150); Unsaturated Iron Binding 246 ug/dL
[2023-05-05 10:10] LABS: Vitamin D 25-OH Total 54.4 ng/mL (>30)
[2023-05-05 10:24] LABS: Microalbumin Urine < 5.0 mg/L
== END 2023-05-05 08:31 | disposition home or self-care (01) ==
LOC: HO.LAB 08:30
PROVIDERS: PCP Internal Medicine; Visit Provider Internal Medicine
DX: F33.0 Major depressive disorder, recurrent, mild (principal); E11.9 Type 2 diabetes mellitus without complications; E55.9 Vitamin D deficiency, unspecified; E78.5 Hyperlipidemia, unspecified; D64.9 Anemia, unspecified
CPT/HCPCS: 36415; 80053; 80061; 82043; 82306; 82570; 83540; 85025

== ENCOUNTER 2023-05-06 13:28 | Outpatient (AMB) | payer OTHER, SELFPAY ==
[2023-05-06 13:41] VITALS: BP 118/70; BMI 31.7
--- NOTE | 2023-05-06 13:41 | A.OFFPC_ITS ---
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 Required: No Accompanied by: Self / Same As Patient Allergies No Known Allergies Allergy (Verified 05/06/23 13:55) Medication List - Last Reconciled 05/06/23 by Ginger Monique MD acetaminophen ER 1,300 mg PO Q6H [adult diapers As directed] atorvastatin 10 mg PO DAILY 90 days blood sugar diagnostic ([employer] Ultra Test strips) test once per day blood-glucose meter ([employer] Ultra2 Meter) test once per day cholecalciferol (vitamin D3) 25 mcg PO DAILY 90 days diclofenac sodium 1% (Aleve (diclofenac)) 2 grams topical QID 30 days dulaglutide (Trulicity) 1.5 mg (0.5 mL) subcut QWEEK 90 days ferrous sulfate 325 mg PO DAILY 90 days fluoxetine 10 mg PO DAILY 90 days incontinence pad, liner, disp Use 1 pad twice a day lancets ([employer] UltraSoft 2 Lancet) test once per day linagliptin (Tradjenta) 5 mg PO DAILY lisinopril 5 mg PO DAILY 90 days loratadine (Allergy Relief (loratadine)) 10 mg PO DAILY 90 days magnesium 250 mg PO DAILY 90 days meclizine 12.5 mg PO TID PRN 30 days metformin 1,000 mg PO BID 30 days pantoprazole 40 mg PO DAILY 90 days pioglitazone 45 mg PO DAILY 90 days sumatriptan succinate 25 mg PO ONCE PRN 30 days underpads (Bed Underpads) As directed [wheelchair with bigger wheels As directed] Tobacco use date assessed: 05/06/23 Fall risk assessment: No Falls in past year Last assessed Fall Risk: 05/06/23 Dental Screening Dental Screen Date: 05/06/23 Did you have a dental visit in the last 12 months?: No Did you have a dental problem in the last 6 months where you did not have access to dental care?: No Was dental information given to patient?: Patient has dentist HPI HPI Comments History of Present Illness Details This is a 68-year-old female with diabetes mellitus type 2, hypertension, hyperlipidemia and mild recurrent major depression as well as GERD that comes today accompanied by for follow-up on her conditions. She is wheelchair-bound due to lumbar spondylosis and bilateral leg weakness. A1c elevated and I will increase Trulicity. Blood pressure stable. LDL within goal. Depression well control with medication. GERD stable with PPIs. [facility] Medical History (Updated 05/06/23 @ 14:06 by Ginger Monique MD) Mild recurrent major depression Urge urinary incontinence Lumbar degenerative disc disease BPPV (benign paroxysmal positional vertigo) Dizziness Essential hypertension Hypovitaminosis D Dyslipidemia Anemia GERD (gastroesophageal reflux disease) Diabetes mellitus Surgical History History of total abdominal hysterectomy History of tonsillectomy Family History Father Leukemia Mother Hypertension Colon cancer Paternal Aunt Uterine cancer Sister Stomach cancer Sister Thyroid cancer Paternal Grandmother Diabetes Paternal Grandfather Diabetes Social History Household Members: Spouse Housing: Apartment Are you a primary senior resident care director to a significant other at home: No Do you presently have visiting nurse or other home services: Yes Alcohol intake: never Patient Tobacco Use Status: Never used Tobacco e-Cigarette/Vaping Use: Never Used Second Hand Smoke Exposure: No service: No Current occupational status: disabled Cognitive needs: Yes Hearing needs: No Vision needs: Yes Questionnaire PHQ-9 Over the last 2 weeks, how often have you been bothered by any of the following problems? 1. Little interest or pleasure in doing things: not at all 2. Feeling down, depressed, or hopeless: several days 3. Trouble falling or staying asleep, or sleeping too much: several days 4. Feeling tired or having little energy: not at all 5. Poor appetite or overeating: not at all 6. Feeling bad about yourself - or that you are a failure or have let yourself or your family down: not at all 7. Trouble concentrating on things, such as reading the newspaper or watching television: not at all 8. Moving or speaking so slowly that other people could have noticed. Or the opposite - being so fidgety or restless that you have been moving around a lot more than usual: not at all 9. Thoughts that you would be better off or of hurting yourself in some way: not at all Total score: 2 Depression Screening Interpretation: Negative Depression Screening Done: Yes 87439 - PHQ-9 Billing: Yes Source: Developed by Drs. Tj Romano, Shawna Marcano, Krit Bailey and colleagues, with an educational georgie from [employer]. Thrive Questionnaire Date Thrive assessed: 05/06/23 I am a: Patient What is your living situation today?: I have a steady place to live Within the past 12 months, did the food you bought not last and you didn't have the money to get more?: Never true Within the past 12 months, did you worry whether your food would run out before you got money to buy more?: Never true Do you have trouble paying for medicines?: No Do you have trouble getting transportation to medical appointments?: No Do you have trouble paying your heating and electricity bill?: No Do you have trouble taking care of your child, family member or friend?: No Do you have trouble with day-to-day activities such as bathing, preparing meals, shopping, managing finances, etc.?: No Are you currently unemployed and looking for a job?: No Are you interested in more education?: No Please select the resources that you would like help with: None Currently or been in a relationship where the following occur: no concerns reported THRIVE Score: 0 AUDIT C Alcohol Use Questionnaire (AUDIT-C) 1. How often do you have a drink containing alcohol?: Never Total Score: 0 TUNDE-7 AMB Questionnaire TUNDE-7 Date TUNDE - 7 assessed: 05/06/23 Feeling nervous, anxious, or on edge: 1 = Several days Not being able to stop or control worryin = Not at all Worrying too much about different things: 1 = Several days Trouble relaxin = Not at all Being so restless that it is hard to sit still: 0 = Not at all Becoming easily annoyed or irritable: 1 = Several days Feeling afraid as if something awful might happen: 0 = Not at all Total TUNDE-7 score (0-4 normal; 5-9 mild; 10-14 moderate; 15-21 severe): 3 Source: Developed by Shawna Wolff B.W. Jeet, Kirt Bailey and colleagues, with an educational georgie from [employer]. TUNDE-7 Assessment Billing TUNDE-7 Assessment Tool: TUNDE-7 Assessment 53095 Review of Systems Const All systems reviewed & are unremarkable except as noted in HPI and below Eyes Reports no additional complaints, Denies change in vision and Denies other visual disturbances Card Denies chest pain at rest, Denies chest pain with activity, Denies edema, Denies irregular heart rhythm, Denies claudication, Denies dyspnea, Denies dyspnea on exertion, Denies orthopnea, Denies paroxysmal nocturnal dyspnea and Denies slow heart rate Resp Denies cough, Denies dyspnea and Denies dyspnea on exertion GI Denies abdominal pain, Denies change in bowel habits, Denies excessive flatus, Denies nausea and Denies vomiting Denies urinary incontinence, Denies urinary hesitancy and Denies urinary urgency Musc Denies atrophy, Denies deformity and Denies limited range of motion Physical exam (Primary Care) Vital Signs: Last Vital Signs BP 118/70 05/06/23 13:41 BMI result Body Mass Index 31.7 Tobacco/Smoking Status: Tobacco use Status Tobacco use date assessed 05/06/23 05/06/23 13:54 Patient Tobacco Use Status Never used Tobacco 05/06/23 13:54 e-Cigarette/Vaping Use Never Used 05/06/23 13:54 PHQ-9: PHQ-9 Score PHQ-9: Total score 2 05/06/23 13:54 Depression Screening Interpretation: Negative Thrive Assessment: Date of Thrive Assessment Date Thrive assessed 05/06/23 05/06/23 13:54 Currently or been in a relationship where the following occur: no concerns reported Eyes General: appearance normal, both eyes and all related structures Eyelids: Yes eyelids normal Conjunctivae: conjunctivae normal Neck Neck: Yes normal visual inspection and Yes supple Resp Effort & Inspection: normal respiratory effort Auscultation: clear to auscultation bilaterally Cardio Jugular venous distension: no JVD Rate: regular rate Rhythm: regular rhythm Heart sounds: S1 normal heart sound present and S2 normal heart sound present Psych Appearance: grossly normal Results AMB Hemoglobin A1c AMB Hemoglobin A1c 7.4 % Last Edit by CHRIS Womack on 05/06/23 13:5 4 Results Reviewed Results Reviewed: Laboratory Last Values Hgb A1c (Clinic) 7.4 % (4.0-6.0) H 05/06/23 13:41 Assessment and Plan Assessment & Plan (1) Mild recurrent major depression: Code(s): F33.0 - Major depressive disorder, recurrent, mild Plan: Continue SSRIs. (2) Essential hypertension: Code(s): I10 - Essential (primary) hypertension Plan: Continue lisinopril. Blood pressure goal is equal or less than 130/80. Increase (3) Diabetes mellitus: Code(s): E11.9 - Type 2 diabetes mellitus without complications Qualifiers: Diabetes mellitus type: type 2 Diabetes mellitus senior living insulin use: without senior living use Diabetes mellitus complication status: without complication Qualified Code(s): E11.9 - Type 2 diabetes mellitus without complications Plan: Increase Trulicity. Continue Tradjenta and Actos. A1c goal is equal or less than 7%. (4) GERD (gastroesophageal reflux disease): Code(s): K21.9 - Gastro-esophageal reflux disease without esophagitis Qualifiers: Esophagitis presence: esophagitis presence not specified Qualified Code(s): K21.9 - Gastro-esophageal reflux disease without esophagitis Plan: Continue PPIs (5) Hyperlipidemia LDL goal <70: Code(s): E78.5 - Hyperlipidemia, unspecified Plan: Continue statins. LDL goal is less than 70. Orders: Orders AMB Hemoglobin A1c Today E11.9 - Type 2 diabetes mellitus without complications Lipid Panel 4 Months E78.5 - Hyperlipidemia, unspecified Vitamin D 25-OH Total 4 Months E55.9 - Vitamin D deficiency, unspecified Complete Blood Count Auto Diff 4 Months D64.9 - Anemia, unspecified Magnesium 4 Months E61.2 - Magnesium deficiency Microalbumin, Random (w Creat) 4 Months E11.9 - Type 2 diabetes mellitus without complications IRON PROFILE 4 Months D64.9 - Anemia, unspecified Comprehensive [place]. Panel Fast 4 Months I10 - Essential (primary) hypertension Medications: New dulaglutide (Trulicity) 3 mg (0.5 mL) subcut QWEEK 90 days 6.5 mL 1RF Discontinued dulaglutide (Trulicity) Discontinued Reason: No Longer Medically Relevant 1.5 mg (0.5 mL) subcut QWEEK 90 days 6.5 mL 1RF E11.9 - Type 2 diabetes mellitus without complications Coding Level of Care Code Est Pt Level 4 (25406) Diagnoses Mild recurrent major depression F33.0 Essential hypertension I10 Type 2 diabetes mellitus without complication, without long-term current use of insulin E11.9 Diabetes mellitus type: type 2 Diabetes mellitus assistant terminal manager insulin use: without assistant terminal manager use Diabetes mellitus complication status: without complication Gastroesophageal reflux disease, unspecified whether esophagitis present K21.9 Esophagitis presence: esophagitis presence not specified Hyperlipidemia LDL goal <70 E78.5 Additional Codes TUNDE-7 Assessment Billing - TUNDE-7 Assessment Tool: TUNDE-7 Assessment 38440 ([id number]) Time Spent (min) 23
== END 2023-05-06 14:11 | disposition home or self-care (01) ==
PROVIDERS: PCP Internal Medicine; Visit Provider Internal Medicine
DX: F33.0 Major depressive disorder, recurrent, mild (principal); E11.69 Type 2 diabetes mellitus with other specified complication; I10 Essential (primary) hypertension; K21.9 Gastro-esophageal reflux disease without esophagitis; E78.5 Hyperlipidemia, unspecified
CPT/HCPCS: 83036; 99214

== ENCOUNTER 2023-09-14 12:46 | Outpatient (AMB) | payer OTHER, SELFPAY ==
[2023-09-14 12:49] VITALS: BP 100/60; BMI 32.5
--- NOTE | 2023-09-14 12:49 | A.OFFPC_ITS ---
Vital Signs 09/14/23 12:49 Height 4 ft 11 in Weight 161 lb BMI 32.5 BP 100/60 Blood Pressure Location Lt brachial Position Sitting Intake Visit Reasons: Follow Up Intake Note: Patient here for a follow up DM Balance Bridge Inspector Required: No Accompanied by: Spouse Allergies No Known Allergies Allergy (Verified 09/14/23 13:06) Medication List - Last Reconciled 09/14/23 by Ginger Monique MD acetaminophen ER 1,300 mg PO Q6H [adult diapers As directed] atorvastatin 10 mg PO DAILY 90 days blood sugar diagnostic (TableGrabberTouch Ultra Test strips) test once per day blood-glucose meter (TableGrabberTouch Ultra2 Meter) test once per day cholecalciferol (vitamin D3) 25 mcg PO DAILY 90 days diclofenac sodium 1% (Aleve (diclofenac)) 2 grams topical QID 30 days ferrous sulfate 325 mg PO DAILY 90 days fluoxetine 10 mg PO DAILY 90 days incontinence pad, liner, disp Use 1 pad twice a day lancets (TableGrabberTouch UltraSoft 2 Lancet) test once per day linagliptin (Tradjenta) 5 mg PO DAILY lisinopril 5 mg PO DAILY 90 days loratadine (Allergy Relief (loratadine)) 10 mg PO DAILY 90 days magnesium 250 mg PO DAILY 90 days meclizine 12.5 mg PO TID PRN 30 days metformin 1,000 mg PO BID 30 days pantoprazole 40 mg PO DAILY 90 days pioglitazone 45 mg PO DAILY 90 days sumatriptan succinate 25 mg PO ONCE PRN 30 days underpads (Bed Underpads) As directed [wheelchair with bigger wheels As directed] Tobacco use date assessed: 05/06/23 Fall risk assessment: No Falls in past year Last assessed Fall Risk: 09/14/23 Dental Screening Dental Screen Date: 05/06/23 HPI HPI Comments History of Present Illness Details This is a 68-year-old female with diabetes mellitus type 2, hypertension, hyperlipidemia and mild recurrent major depression that comes accompanied by significant other follow-up on her conditions. A1c has improved but still not on goal. I will add Ozempic and I did tell patient that when Ozempic started to discontinue Tradjenta. Blood pressure stable. Last LDL was within goal. Depression well controlled with SSRIs. In wheelchair due to gait instability. Denies any chest pain or shortness on breath. PFSH Medical History Mild recurrent major depression Urge urinary incontinence Lumbar degenerative disc disease BPPV (benign paroxysmal positional vertigo) Dizziness Essential hypertension Hypovitaminosis D Dyslipidemia Anemia GERD (gastroesophageal reflux disease) Diabetes mellitus Surgical History History of total abdominal hysterectomy History of tonsillectomy Family History Father Leukemia Mother Hypertension Colon cancer Paternal Aunt Uterine cancer Sister Stomach cancer Sister Thyroid cancer Paternal Grandmother Diabetes Paternal Grandfather Diabetes Social History Household Members: Spouse Housing: Apartment Are you a primary child care leader to a significant other at home: No Do you presently have visiting nurse or other home services: Yes Alcohol intake: never Patient Tobacco Use Status: Never used Tobacco e-Cigarette/Vaping Use: Never Used Second Hand Smoke Exposure: No service: No Current occupational status: disabled Cognitive needs: Yes Hearing needs: No Vision needs: Yes Questionnaire Thrive Questionnaire Date Thrive assessed: 05/06/23 TUNDE-7 AMB Questionnaire TUNDE-7 Date TUNDE - 7 assessed: 05/06/23 Source: Developed by Drs. Tj Romano, Shawna Marcano, Kirt Bailey and colleagues, with an educational georgie from [employer]. Review of Systems Const All systems reviewed & are unremarkable except as noted in HPI and below Card Denies chest pain at rest, Denies chest pain with activity, Denies edema, Denies irregular heart rhythm, Denies claudication, Denies dyspnea, Denies dyspnea on exertion, Denies orthopnea, Denies paroxysmal nocturnal dyspnea and Denies slow heart rate Resp Denies cough, Denies dyspnea and Denies dyspnea on exertion Physical exam (Primary Care) Vital Signs: Last Vital Signs BP 100/60 09/14/23 12:49 BMI result Body Mass Index 32.5 BMI Assessment/Plan discussion: High BMI High, discussed plan: lifestyle, weight reduction, dietary and physical activity Tobacco/Smoking Status: Tobacco use Status Tobacco use date assessed 05/06/23 09/14/23 13:00 Patient Tobacco Use Status Never used Tobacco 09/14/23 13:00 e-Cigarette/Vaping Use Never Used 09/14/23 13:00 Thrive Assessment: Date of Thrive Assessment Date Thrive assessed 05/06/23 09/14/23 13:00 Const General: cooperative Limitations: wheelchair Resp Effort & Inspection: normal respiratory effort Auscultation: clear to auscultation bilaterally Cardio Jugular venous distension: no JVD Rate: regular rate Rhythm: regular rhythm Heart sounds: S1 normal heart sound present and S2 normal heart sound present Extrem General: Yes full ROM Results AMB Hemoglobin A1c AMB Hemoglobin A1c 7.1 % Last Edit by CHRIS Womack on 09/14/23 13:0 4 Results Reviewed Results Reviewed: Laboratory Last Values Hgb A1c (Clinic) 7.1 % (4.0-6.0) H 09/14/23 12:48 Assessment and Plan Assessment & Plan (1) Mild recurrent major depression: Code(s): F33.0 - Major depressive disorder, recurrent, mild Plan: Continue SSRIs. (2) Hyperlipidemia LDL goal <70: Code(s): E78.5 - Hyperlipidemia, unspecified Plan: Continue statins. LDL goal is less than 70. (3) Diabetes mellitus: Code(s): E11.9 - Type 2 diabetes mellitus without complications Qualifiers: Diabetes mellitus type: type 2 Diabetes mellitus joint terminal attack controller insulin use: without joint terminal attack controller use Diabetes mellitus complication status: without complication Qualified Code(s): E11.9 - Type 2 diabetes mellitus without complications Plan: Continue metformin, Actos. Start Ozempic. A1c goal is equal or less than 7%. (4) Essential hypertension: Code(s): I10 - Essential (primary) hypertension Plan: Continue lisinopril. Blood pressure goal is equal or less than 130/80. Orders: Orders Microalbumin, Random (w Creat) Today E11.9 - Type 2 diabetes mellitus without complications Vitamin D 25-OH Total Today E55.9 - Vitamin D deficiency, unspecified IRON PROFILE Today D64.9 - Anemia, unspecified Magnesium Today E61.2 - Magnesium deficiency AMB Hemoglobin A1c Today E11.9 - Type 2 diabetes mellitus without complications Complete Blood Count Auto Diff Today D64.9 - Anemia, unspecified Lipid Panel Today E78.5 - Hyperlipidemia, unspecified Vitamin B12 and Folate Today E53.8 - Deficiency of other specified B group vitamins Comprehensive [place]. Panel Fast Today E78.5 - Hyperlipidemia, unspecified Medications: New semaglutide (Ozempic) for 4 weeks 0.25 mg (0.368 mL) subcut QWEEK 4 weeks 1.472 mL 0RF E11.9 - Type 2 diabetes mellitus without complications bacitracin zinc 1 appl topical Q8H 2 weeks 14 grams 0RF Changed From acetaminophen ER 1,300 mg PO Q6H To acetaminophen ER 1,300 mg (2 x 650 mg) PO Q6H 30 days 240 tabs 3RF Refilled cholecalciferol (vitamin D3) 25 mcg PO DAILY 90 days 90 tabs 3RF fluoxetine 10 mg PO DAILY 90 days 90 caps 2RF lisinopril 5 mg PO DAILY 90 days 90 tabs 1RF magnesium 250 mg PO DAILY 90 days 90 tabs 0RF pantoprazole 40 mg PO DAILY 90 days 90 tabs 3RF pioglitazone 45 mg PO DAILY 90 days 90 tabs 1RF atorvastatin 10 mg PO DAILY 90 days 90 tabs 3RF meclizine 12.5 mg PO TID 30 days PRN 90 tabs 1RF dizziness E11.9 - Type 2 diabetes mellitus without complications metformin 1,000 mg PO BID 30 days 60 tabs 6RF sumatriptan succinate do not exceed 8 doses per 24 hrs 25 mg PO ONCE 30 days PRN 9 tabs 6RF migraine headache Coding Level of Care Code Est Pt Level 4 (51526) Complex EM visit Add On G2211 Diagnoses Mild recurrent major depression F33.0 Hyperlipidemia LDL goal <70 E78.5 Type 2 diabetes mellitus without complication, without long-term current use of insulin E11.9 Diabetes mellitus type: type 2 Diabetes mellitus penitentiary insulin use: without penitentiary use Diabetes mellitus complication status: without complication Essential hypertension I10 Time Spent (min) 23
== END 2023-09-14 13:15 | disposition home or self-care (01) ==
PROVIDERS: PCP Internal Medicine; Visit Provider Internal Medicine
DX: F33.0 Major depressive disorder, recurrent, mild (principal); E78.5 Hyperlipidemia, unspecified; E11.9 Type 2 diabetes mellitus without complications; I10 Essential (primary) hypertension
CPT/HCPCS: 83036; 99214; G2211

== ENCOUNTER 2023-11-03 09:42 | Outpatient (REF) | payer OTHER, SELFPAY ==
--- NOTE | ~2023-11-03 | MM_ITS ---
EXAMINATION: MM SCREENING DIGITAL BREAST TOMOSYNTHESIS, BILATERAL CLINICAL INFORMATION: Screening. Asymptomatic. COMPARISON: Mammography: Comparison is made with available priors TECHNIQUE: Digital breast mammography with tomosynthesis is performed in both the craniocaudal and mediolateral oblique views along with computer-aided detection (CAD). FINDINGS: There are scattered areas of fibroglandular density (ACR BI-RADS breast composition Category b). There are no significant masses, abnormal calcifications, or other abnormalities. MM/MM tomosynthesis screening BI IMPRESSION: No mammographic evidence of malignancy. ASSESSMENT: BI-RADS BI-RADS 1 - Negative RECOMMENDATION: Routine annual mammography screening. 1 year F/U This examination should not preclude the clinical evaluation of a suspicious palpable abnormality. This patient's information was entered into a reminder system with a target due date for their next mammogram. Electronically signed by: Martine Cardenas DO 11/17/2023 09:34 AM EDT
== END 2023-11-03 09:43 | disposition home or self-care (01) ==
LOC: HO.MAMMO 09:42
PROVIDERS: PCP Internal Medicine; Visit Provider Internal Medicine
DX: Z12.31 Encounter for screening mammogram for malignant neoplasm of breast (principal)
CPT/HCPCS: 77063; 77067

== ENCOUNTER → 2023-11-03 10:00 | Outpatient (BNV) | payer OTHER, SELFPAY | PROVIDERS: PCP Internal Medicine; Visit Provider Internal Medicine | DX: Z12.31 Encounter for screening mammogram for malignant neoplasm of breast (principal) | CPT/HCPCS: 77063; 77067 ==

== ENCOUNTER 2024-02-01 07:49 | Outpatient (REF) | payer OTHER, SELFPAY ==
[2024-02-01 08:02] LABS: MANUAL DIFF FLAG NO
[2024-02-01 08:07] LABS: Basophils Absolute Auto 0.1 X10*3/uL (0.0-0.2); Basophils Percent Auto 0.7 % (0-2); Eosinophils Absolute Auto 0.3 X10*3/uL (0.0-0.4); Eosinophils Percent Auto 4.9 % (0-4); Hematocrit 28.7 % (37.0-47.0); Hemoglobin 9.1 g/dl (12.0-16.0); Imm Gran Abs Auto 0.02 X10*3/uL (0.00-0.03); Imm Gran Pct Auto 0.3 % (0.0-0.4); Lymphocytes Absolute Auto 1.8 X10*3/uL (1.2-4.9); Lymphocytes Percent Auto 26.3 % (20-40); Mean Corpuscular HGB Conc 31.7 g/dl (31.0-35.0); Mean Corpuscular Hemoglobin 24.5 pg (27.0-33.0); Mean Corpuscular Volume 77.4 fL (80.0-98.0); Mean Platelet Volume 9.1 fL (9.4-12.3); Monocytes Absolute Auto 0.5 X10*3/uL (0.1-1.2); Monocytes Percent Auto 6.8 % (2-11); Neutrophils Absolute Auto 4.1 x10*3/uL (2.0-8.3); Platelet Count 334 X10*3/uL (160-400); Red Blood Count 3.71 X10*6/uL (4.20-5.50); Red Cell Distribution Width 17.4 % (11.0-16.0); White Blood Count 6.8 X10*3/uL (4.8-10.8)
[2024-02-01 08:42] LABS: Alanine Aminotransferase < 6 U/L (0-31); Albumin Level 3.6 g/dL (3.5-5.0); Alkaline Phosphatase 70 U/L (39-117); Anion Gap 13 (12-20); Aspartate Amino Transferase 15 U/L (5-31); Bilirubin Total 0.1 mg/dL (0.0-1.0); Blood Urea Nitrogen 24 mg/dL (9-16); Calcium 9.3 mg/dL (8.4-10.2); Carbon Dioxide 26 mmol/L (22-29); Chloride 101 mmol/L (96-108); Cholesterol 117 mg/dL (<200); Estimated Glomerular Filt Rate > 60; Glucose Fasting 121 mg/dL (60-99); HDL Cholesterol 55 mg/dL (>40); Iron 22 mcg/dL (30-160); LDL Cholesterol Calculated 47 mg/dL (<100); Magnesium 1.7 mg/dL (1.6-2.6); Percent Iron Saturation 7 % (15-50); Potassium 4.4 mmol/L (3.3-5.1); Sodium 136 mmol/L (135-145); Total Iron Binding Capacity 304 mcg/dL (228-428); Total Protein 7.5 g/dL (6.5-8.0); Triglycerides 79 mg/dL (<150); Unsaturated Iron Binding 282 ug/dL
[2024-02-01 08:55] LABS: Vitamin D 25-OH Total 50.6 ng/mL (>30)
[2024-02-01 08:57] LABS: Microalbumin Urine < 5.0 mg/L
[2024-02-01 09:10] LABS: Folate 9.2 ng/mL (> or = 4.0); Vitamin B12 217 pg/mL (200-900)
== END 2024-02-01 07:50 | disposition home or self-care (01) ==
LOC: HO.LAB 07:49
PROVIDERS: PCP Internal Medicine; Visit Provider Internal Medicine
DX: E61.2 Magnesium deficiency (principal); E55.9 Vitamin D deficiency, unspecified; D64.9 Anemia, unspecified; E11.9 Type 2 diabetes mellitus without complications; I10 Essential (primary) hypertension; E78.5 Hyperlipidemia, unspecified; E53.8 Deficiency of other specified B group vitamins
CPT/HCPCS: 36415; 80053; 80061; 82306; 82570; 82607; 82746; 83540; 83735; 85025

== ENCOUNTER 2024-02-04 12:37 | Outpatient (AMB) | payer OTHER, SELFPAY ==
[2024-02-04 12:43] VITALS: BP 102/60; PULSE 106; O2SAT 98; BMI 33.3
--- NOTE | 2024-02-04 12:43 | A.OFFPC_ITS ---
Vital Signs 02/04/24 12:43 Height 4 ft 11 in Weight 164 lb 14.492 oz BMI 33.3 BP 102/60 Blood Pressure Location Lt brachial Position Sitting Pulse 106 H Pulse Source Pulse Oximeter Pulse Oximetry (%) 98 Oxygen Delivery Method Room Air Intake Visit Reasons: Annual Exam Intake Note: Patient here for a physical exam Trauma Director Required: No Accompanied by: Spouse Allergies No Known Allergies Allergy (Verified 02/04/24 13:04) Medication List - Last Reconciled 02/04/24 by Ginger Monique MD acetaminophen ER 1,300 mg (2 x 650 mg) PO Q6H 30 days [adult diapers As directed] atorvastatin 10 mg PO DAILY 90 days bacitracin zinc 1 appl topical Q8H 2 weeks blood sugar diagnostic (OneTouch Ultra Test strips) test once per day blood sugar diagnostic (FreeStyle Lite Strips) Use 1 strip once a day blood-glucose meter (FreeStyle Lite Meter kit) As directed blood-glucose meter (OneTouch Ultra2 Meter) test once per day cholecalciferol (vitamin D3) 25 mcg PO DAILY 90 days diclofenac sodium 1% (Aleve (diclofenac)) 2 grams topical QID 30 days ferrous sulfate 325 mg PO DAILY 90 days fluoxetine 10 mg PO DAILY 90 days incontinence pad, liner, disp Use 1 pad twice a day lancets (FreeStyle Lancets) Use 1 lancet once a day lancets (OneTouch UltraSoft 2 Lancet) test once per day linagliptin (Tradjenta) 5 mg PO DAILY lisinopril 5 mg PO DAILY 90 days loratadine (Allergy Relief (loratadine)) 10 mg PO DAILY 90 days magnesium 250 mg PO DAILY 90 days meclizine 12.5 mg PO TID PRN 30 days metformin 1,000 mg PO BID 30 days pantoprazole 40 mg PO DAILY 90 days pioglitazone 45 mg PO DAILY 90 days semaglutide (Ozempic) 1 mg (0.75 mL) subcut QWEEK 4 weeks semaglutide (Ozempic) 0.5 mg (0.736 mL) subcut QWEEK 4 weeks sumatriptan succinate 25 mg PO ONCE PRN 30 days underpads (Bed Underpads) As directed [wheelchair with bigger wheels As directed] Tobacco use date assessed: 05/06/23 Fall risk assessment: No Falls in past year Last assessed Fall Risk: 02/04/24 Dental Screening Dental Screen Date: 02/04/24 Did you have a dental visit in the last 12 months?: No Did you have a dental problem in the last 6 months where you did not have access to dental care?: No Was dental information given to patient?: Patient has dentist HPI HPI Comments History of Present Illness Details The patient is a 69-year-old female presenting for an annual physical examination. She has a history of multiple chronic conditions including Essential Hypertension, which is currently being managed with Lisinopril 5 mg daily. Her blood pressure is well-controlled on this medication. She also has Type 2 Diabetes Mellitus, managed with Metformin 1000 mg twice daily and Ozempic which will be increase to 2 mg. Her most recent hemoglobin A1c is 7.1%. The patient also takes Atorvastatin 10 mg for Hyperlipidemia. She reports a history of Mild Major Depressive Disorder managed with Fluoxetine 10 mg daily. The patient has notable anemia with hemoglobin at 9.1 g/dL, MCV at 77.4 fL, and low iron levels. She is taking iron supplements every other day due to gastric upset. There is concern for possible gastrointestinal bleeding, though the patient denies any visible blood in her stool or urine. The patient has a maternal history of colon cancer and has not had a colonoscopy since 2005; previously normal. She declines colonoscopy and will stick to cologuard. Osteoarthritis is suggested due to non-specific joint symptoms and use a wheelchair for long distance. - Received Prevnar 20 vaccination in . - Due for Tetanus immunization as the la st dose was in 2013. - Recent mammogram in October was norm al. - Discussed the need for routine colonos copy given maternal history of colon can cer and time since last colonoscopy but had Cologuard done January 2023 which was negative. - Patient is on Vitamin D and magnesium supplementation. - Iron supplementation ongoing with adju stments for gastrointestinal tolerance. [facility] Medical History Mild recurrent major depression Urge urinary incontinence Lumbar degenerative disc disease BPPV (benign paroxysmal positional vertigo) Dizziness Essential hypertension Hypovitaminosis D Dyslipidemia Anemia GERD (gastroesophageal reflux disease) Diabetes mellitus Surgical History History of total abdominal hysterectomy History of tonsillectomy Family History Father Leukemia Mother Hypertension Colon cancer Paternal Aunt Uterine cancer Sister Stomach cancer Sister Thyroid cancer Paternal Grandmother Diabetes Paternal Grandfather Diabetes Social History Household Members: Spouse Housing: Apartment Are you a primary customer care associate to a significant other at home: No Do you presently have visiting nurse or other home services: Yes Alcohol intake: never Patient Tobacco Use Status: Never used Tobacco e-Cigarette/Vaping Use: Never Used Second Hand Smoke Exposure: No service: No Current occupational status: disabled Cognitive needs: Yes Hearing needs: No Vision needs: Yes Questionnaire Thrive Questionnaire Date Thrive assessed: 05/06/23 TUNDE-7 AMB Questionnaire TUNDE-7 Date TUNDE - 7 assessed: 05/06/23 Source: Developed by Drs. Tj Romano, Shawna Marcano, Kirt Bailey and colleagues, with an educational georgie from [employer]. Review of Systems Const Details: - Gastrointestinal: Denies visible blood in stool. - Respiratory: Denies chest pain, shortness of breath, cough. - Genitourinary: Denies blood in urine. - Musculoskeletal: Reports occasional dizziness. - General: Denies fever. Physical exam (Primary Care) Vital Signs: Last Vital Signs Pulse 106 H 02/04/24 12:43 BP 102/60 02/04/24 12:43 Pulse Ox 98 02/04/24 12:43 Oxygen Delivery Method Room Air 02/04/24 12:43 BMI result Body Mass Index 33.3 BMI Assessment/Plan discussion: High BMI High, discussed plan: lifestyle, weight reduction, dietary and physical activity Tobacco/Smoking Status: Tobacco use Status Tobacco use date assessed 05/06/23 02/04/24 12:51 Patient Tobacco Use Status Never used Tobacco 02/04/24 12:51 e-Cigarette/Vaping Use Never Used 02/04/24 12:51 Thrive Assessment: Date of Thrive Assessment Date Thrive assessed 05/06/23 02/04/24 12:51 Const Other: General: Cooperative, healthy appearing, comfortable, no acute distress, in a wheelchair Orientation: Patient oriented x3 Limitations: No limitations, but patient uses a wheelchair for long distances and a walker for short distances Head: Normal to inspection Ears: Hearing grossly normal bilaterally Nose: Normal external nose present Face and sinus: Normal facial exam Eyes: Appearance normal, both eyes and all related structures Neck: Normal visual inspection and Yes full ROM Respiratory: Normal respiratory effort and able to speak in complete sentences. Clear to auscultation bilaterally Cardiovascular: Regular rate and rhythm. Normal S1 and S2 GI: Normal to inspection. Soft to palpation and nontender Skin: No rashes or lesions noted Neuro: Patient oriented x3 Extremities: Normal to inspection, but patient uses a wheelchair for long dist ances and a walker for short distances Office Procedures Flu Questionnaire Does the patient have a severe egg allergy?: No Results AMB Hemoglobin A1c AMB Hemoglobin A1c 7.1 % Last Edit by CHRIS Womack on 02/04/24 12:5 6 Immunizations Fluarix Triv [id number] (PF) 45 mcg (15 mcg x 3)/0.5 mL IM syringe Performing Provider: Ginger Monique MD Performing Location: [facility] Primary [facility] Documented (not given) by: CHRIS Womack on 02/04/24 12:53 Reason Not Given: Patient Refused Boostrix Tdap 2.5 Lf unit-8 mcg-5 Lf/0.5 mL intramuscular syringe Performing Provider: Ginger Monique MD Performing Location: [facility] Adult [facility] Administered by: CHRIS Womack on 02/04/24 13:27 Dose Route Admin Location Dispensed Lot Number Expiration Date [facility] Machine Operator Transplanter 0.5 mL IM Left Deltoid 0.5 mL [id number] 11/20/24 [id number] [place] VIS Given Date VIS Provided VIS Publication Date 02/04/24 Single Vaccine 20 Eligibility Eligibility Date Funding Source Not [facility] Eligible 02/04/24 Private Results Reviewed Results Reviewed: Laboratory Last Values Hgb A1c (Clinic) 7.1 % (4.0-6.0) H 02/04/24 12:42 Coding Level of Care Code Est Pt Prev Care >65y(60715) Diagnoses Physical exam Z00.00 Mild recurrent major depression F33.0 Type 2 diabetes mellitus without complication, without long-term current use of insulin E11.9 Diabetes mellitus complication status: without complication Diabetes mellitus mcfp insulin use: without intermission coordinator use Diabetes mellitus type: type 2 Time Spent (min) 33 Assessment & Plan Assessment & Plan (1) Physical exam: Code(s): Z00.00 - Encounter for general adult medical examination without abnormal findings Category: Medical (2) Mild recurrent major depression: Code(s): F33.0 - Major depressive disorder, recurrent, mild Category: Medical (3) Diabetes mellitus: Code(s): E11.9 - Type 2 diabetes mellitus without complications Category: Medical Qualifiers: Diabetes mellitus complication status: without complication Diabetes mellitus mcfp insulin use: without mcfp use Diabetes mellitus type: type 2 Qualified Code(s): E11.9 - Type 2 diabetes mellitus without complications Plan - Continue Lisinopril 5 mg for hypertension management. - Maintain Metformin 1000 mg and Trajenta 5 mg for diabetes; consider Ozempic dose adjustments based on glycemic control. - Continue Atorvastatin 10 mg for hyperlipidemia. - Consider colonoscopy given familial colon cancer history and anemia. - Continue Fluoxetine 10 mg for depression. - Adjust iron supplementation schedule to improve gastric tolerance and reassess anemia. - Recommend Tetanus booster immunization. - Advise regular monitoring of blood glucose and lifestyle interventions for diabetes management. Last diabetic eye exam was 2 years ago and will be refer to ophthalmology. Patient was informed and verbally consented to the use of an ambient scribe for clinic note documentation during this visit. I discussed the current management of the patient's chronic conditions, emphasizing the importance of continuing effective medications for hypertension, diabetes, and hyperlipidemia. We evaluated her recent Anemia diagnosis, discussing the potential need for a colonoscopy given her family history of colon cancer. We examined the effectiveness of her current diabetes treatment regimen, noting the possible benefits of Ozempic dosage adjustments. The patient consented to the recommended Tetanus booster and ongoing iron supplementation with adjustments for tolerance. Regular follow-ups and blood monitoring are essential in managing her health conditions. Orders: Orders AMB Hemoglobin A1c Today E11.9 - Type 2 diabetes mellitus without complications Complete Blood Count Auto Diff 4 Months D64.9 - Anemia, unspecified Comprehensive [place]. Panel Fast 4 Months E78.5 - Hyperlipidemia, unspecified Influenza [id number] Immunization Today Z23 - Encounter for immunization TDaP Immunization Today Z23 - Encounter for immunization XR DEXA axial skeleton Today Z78.0 - Asymptomatic menopausal state Lipid Panel 4 Months E78.5 - Hyperlipidemia, unspecified Microalbumin, Random (w Creat) 4 Months R80.9 - Proteinuria, unspecified Vitamin D 25-OH Total 4 Months E55.9 - Vitamin D deficiency, unspecified IRON PROFILE 4 Months D64.9 - Anemia, unspecified Magnesium 4 Months E61.2 - Magnesium deficiency Referrals Ophthalmology Referral E11.9 - Type 2 diabetes mellitus without complications Medications: New 2 semaglutide (Ozempic) 2 mg (0.75 mL) subcut QWEEK 3 mL 6RF 4 weeks E11.9 - Type 2 diabetes mellitus without complications Refilled pioglitazone 45 mg PO DAILY 90 tabs 1RF 90 days Discontinued linagliptin (Tradjenta) Discontinued Reason: Patient Completed Course 5 mg PO DAILY 90 tabs 0RF semaglutide (Ozempic) Discontinued Reason: Patient Completed Course 1 mg (0.75 mL) subcut QWEEK 4 weeks 3 mL 0RF semaglutide (Ozempic) Discontinued Reason: Patient Completed Course 0.5 mg (0.736 mL) subcut QWEEK 4 weeks 2.944 mL 0RF Patient Instructions: - Continue current medications as prescribed. - Schedule a Tetanus booster this year. - Maintain dietary iron supplementation every other day. - Monitor blood glucose levels regularly and refer to ophthalmology. - Be alert for any gastrointestinal bleeding and report immediately. - Consider scheduling a colonoscopy in alignment with family cancer history. - Follow a diabetes-friendly diet and engage in recommended physical activity. - Follow up for regular blood pressure and diabetes checks.
== END 2024-02-04 13:27 | disposition home or self-care (01) ==
PROVIDERS: PCP Internal Medicine; Visit Provider Internal Medicine
DX: Z00.00 Encounter for general adult medical examination without abnormal findings (principal); F33.0 Major depressive disorder, recurrent, mild; E11.9 Type 2 diabetes mellitus without complications; Z23 Encounter for immunization

== ENCOUNTER → 2024-02-04 12:37 | Outpatient (BNVA) | payer OTHER, SELFPAY | PROVIDERS: PCP Internal Medicine; Visit Provider Internal Medicine | DX: Z00.00 Encounter for general adult medical examination without abnormal findings (principal); Z23 Encounter for immunization; F33.0 Major depressive disorder, recurrent, mild; E11.9 Type 2 diabetes mellitus without complications | CPT/HCPCS: 83036; 90471; 90715; 99397 ==

== ENCOUNTER 2024-06-03 08:01 | Outpatient (REF) | payer OTHER, SELFPAY ==
[2024-06-03 08:24] LABS: MANUAL DIFF FLAG NO
[2024-06-03 09:28] LABS: Basophils Percent Auto 0.5 % (0-2); Eosinophils Absolute Auto 0.3 X10*3/uL (0.0-0.4); Eosinophils Percent Auto 4.5 % (0-4); Hematocrit 27.9 % (37.0-47.0); Hemoglobin 8.9 g/dl (12.0-16.0); Imm Gran Abs Auto 0.03 X10*3/uL (0.00-0.03); Imm Gran Pct Auto 0.4 % (0.0-0.4); Lymphocytes Absolute Auto 1.7 X10*3/uL (1.2-4.9); Mean Corpuscular HGB Conc 31.9 g/dl (31.0-35.0); Mean Corpuscular Hemoglobin 24.6 pg (27.0-33.0); Mean Corpuscular Volume 77.1 fL (80.0-98.0); Mean Platelet Volume 9.4 fL (9.4-12.3); Monocytes Absolute Auto 0.5 X10*3/uL (0.1-1.2); Monocytes Percent Auto 6.5 % (2-11); Neutrophils Percent Auto 66.1 % (45-73); Platelet Count 360 X10*3/uL (160-400); Red Blood Count 3.62 X10*6/uL (4.20-5.50); Red Cell Distribution Width 17.4 % (11.0-16.0); White Blood Count 7.6 X10*3/uL (4.8-10.8)
[2024-06-03 10:19] LABS: Creatinine Urine 59.39 mg/dL; Microalbumin Urine < 5.0 mg/L
[2024-06-03 10:31] LABS: Vitamin D 25-OH Total 53.3 ng/mL (>30)
[2024-06-03 10:33] LABS: Alanine Aminotransferase < 6 U/L (0-31); Albumin Level 3.4 g/dL (3.5-5.0); Alkaline Phosphatase 77 U/L (39-117); Anion Gap 11 (12-20); Aspartate Amino Transferase 14 U/L (5-31); Bilirubin Total 0.1 mg/dL (0.0-1.0); Blood Urea Nitrogen 17 mg/dL (9-16); Carbon Dioxide 27 mmol/L (22-29); Chloride 106 mmol/L (96-108); Cholesterol 100 mg/dL (<200); Estimated Glomerular Filt Rate > 60; Glucose Fasting 130 mg/dL (60-99); HDL Cholesterol 42 mg/dL (>40); Iron 24 mcg/dL (30-160); LDL Cholesterol Calculated 40 mg/dL (<100); Magnesium 1.5 mg/dL (1.6-2.6); Percent Iron Saturation 9 % (15-50); Sodium 140 mmol/L (135-145); Total Iron Binding Capacity 274 mcg/dL (228-428); Total Protein 6.9 g/dL (6.5-8.0); Triglycerides 90 mg/dL (<150); Unsaturated Iron Binding 250 ug/dL
== END 2024-06-03 08:02 | disposition home or self-care (01) ==
LOC: HO.LAB 08:01
PROVIDERS: PCP Internal Medicine; Visit Provider Internal Medicine
DX: E78.5 Hyperlipidemia, unspecified (principal); D64.9 Anemia, unspecified; E61.2 Magnesium deficiency; E55.9 Vitamin D deficiency, unspecified; E11.9 Type 2 diabetes mellitus without complications
CPT/HCPCS: 36415; 80053; 80061; 82043; 82306; 82570; 83540; 83735; 85025

== ENCOUNTER 2024-06-07 13:13 | Outpatient (AMB) | payer OTHER, SELFPAY ==
--- NOTE | 2024-06-07 13:39 | A.OFFPC_ITS ---
Vital Signs 06/07/24 13:45 Height 4 ft 11 in Weight 154 lb 5.177 oz BMI 31.2 BP 118/72 Blood Pressure Location Lt brachial Position Sitting Intake Visit Reasons: dm Intake Note: Patient here for a follow up DM, vertigo Senior Courtroom Clerk Required: No Accompanied by: Spouse Allergies No Known Allergies Allergy (Verified 06/07/24 13:52) Medication List - Last Reconciled 06/07/24 by Ginger Monique MD acetaminophen ER 1,300 mg (2 x 650 mg) PO Q6H 30 days [adult diapers As directed] atorvastatin 10 mg PO DAILY 90 days blood sugar diagnostic (OneTouch Ultra Test strips) test once per day blood sugar diagnostic (FreeStyle Lite Strips) Use 1 strip once a day blood-glucose meter (FreeStyle Lite Meter kit) As directed blood-glucose meter (OneTouch Ultra2 Meter) test once per day cholecalciferol (vitamin D3) 25 mcg PO DAILY 90 days diclofenac sodium 1% (Aleve (diclofenac)) 2 grams topical QID 30 days ferrous sulfate 325 mg PO DAILY 90 days fluoxetine 10 mg PO DAILY 90 days incontinence pad, liner, disp Use 1 pad twice a day lancets (FreeStyle Lancets) Use 1 lancet once a day lancets (OneTouch UltraSoft 2 Lancet) test once per day lisinopril 5 mg PO DAILY 90 days loratadine (Allergy Relief (loratadine)) 10 mg PO DAILY 90 days magnesium 250 mg PO DAILY 90 days meclizine 12.5 mg PO TID PRN 30 days metformin 1,000 mg PO BID 30 days pantoprazole 40 mg PO DAILY 90 days pioglitazone 45 mg PO DAILY 90 days semaglutide (Ozempic) 2 mg (0.75 mL) subcut QWEEK 4 weeks sumatriptan succinate 25 mg PO ONCE PRN 30 days underpads (Bed Underpads) As directed [wheelchair with bigger wheels As directed] Tobacco use date assessed: 06/07/24 Fall risk assessment: No Falls in past year Last assessed Fall Risk: 06/07/24 Dental Screening Dental Screen Date: 06/07/24 Did you have a dental visit in the last 12 months?: No Did you have a dental problem in the last 6 months where you did not have access to dental care?: No Was dental information given to patient?: Patient has dentist HPI HPI Comments History of Present Illness Details The patient is a 69-year-old female presenting for follow-up of multiple chronic conditions including Type 2 Diabetes Mellitus, Hyperlipidemia, and Hypertension. Her Type 2 Diabetes has shown improvement with a decreased A1c level to 6.5, hyperlipidemia is well-controlled, and blood pressure is stable. She reports persistent anemia with recent hemoglobin at 8.9, and low iron levels, noting difficulty with iron supplements due to gastrointestinal discomfort. She has migraines controlled with sumatriptan and experiences vertigo. Her depression and anxiety are managed with fluoxetine 10 mg. She has a history of low magnesium managed with supplements, affects noted to be lowered by pantoprazole, which is for managing GERD symptoms. [facility] Medical History Mild recurrent major depression Urge urinary incontinence Lumbar degenerative disc disease BPPV (benign paroxysmal positional vertigo) Dizziness Essential hypertension Hypovitaminosis D Dyslipidemia Anemia GERD (gastroesophageal reflux disease) Diabetes mellitus Surgical History History of total abdominal hysterectomy History of tonsillectomy Family History Father Leukemia Mother Hypertension Colon cancer Paternal Aunt Uterine cancer Sister Stomach cancer Sister Thyroid cancer Paternal Grandmother Diabetes Paternal Grandfather Diabetes Social History Household Members: Spouse Housing: Apartment Are you a primary in home caregiver to a significant other at home: No Do you presently have visiting nurse or other home services: Yes Alcohol intake: never Patient Tobacco Use Status: Never used Tobacco e-Cigarette/Vaping Use: Never Used Second Hand Smoke Exposure: No service: No Current occupational status: disabled Cognitive needs: Yes Hearing needs: No Vision needs: Yes Questionnaire PHQ-9 Over the last 2 weeks, how often have you been bothered by any of the following problems? 1. Little interest or pleasure in doing things: not at all 2. Feeling down, depressed, or hopeless: several days 3. Trouble falling or staying asleep, or sleeping too much: not at all 4. Feeling tired or having little energy: not at all 5. Poor appetite or overeating: not at all 6. Feeling bad about yourself - or that you are a failure or have let yourself or your family down: not at all 7. Trouble concentrating on things, such as reading the newspaper or watching television: not at all 8. Moving or speaking so slowly that other people could have noticed. Or the opposite - being so fidgety or restless that you have been moving around a lot more than usual: not at all 9. Thoughts that you would be better off or of hurting yourself in some way: not at all Total score: 1 Depression Screening Interpretation: Negative Depression Screening Done: Yes 23536 - PHQ-9 Billing: Yes Source: Developed by Drs. Tj Romano, Shawna Marcano, Kirt Bailey and colleagues, with an educational georgie from [employer]. Thrive Questionnaire Date Thrive assessed: 06/07/24 I am a: Patient What is your living situation today?: I have a steady place to live Within the past 12 months, did the food you bought not last and you didn't have the money to get more?: Never true Within the past 12 months, did you worry whether your food would run out before you got money to buy more?: Never true Do you have trouble paying for medicines?: No Do you have trouble getting transportation to medical appointments?: No Do you have trouble paying your heating and electricity bill?: No Do you have trouble taking care of your child, family member or friend?: No Do you have trouble with day-to-day activities such as bathing, preparing meals, shopping, managing finances, etc.?: No Are you currently unemployed and looking for a job?: No Are you interested in more education?: No Please select the resources that you would like help with: None Currently or been in a relationship where the following occur: No concerns reported THRIVE Score: 0 AUDIT C Alcohol Use Questionnaire (AUDIT-C) 1. How often do you have a drink containing alcohol?: Never Total Score: 0 Score Reviewed/Action Taken: No TUNDE-7 AMB Questionnaire TUNDE-7 Date TUNDE - 7 assessed: 06/07/24 Feeling nervous, anxious, or on edge: 0 = Not at all Not being able to stop or control worryin = Not at all Worrying too much about different things: 0 = Not at all Trouble relaxin = Not at all Being so restless that it is hard to sit still: 0 = Not at all Becoming easily annoyed or irritable: 0 = Not at all Feeling afraid as if something awful might happen: 0 = Not at all Total TUNDE-7 score (0-4 normal; 5-9 mild; 10-14 moderate; 15-21 severe): 0 Source: Developed by Drs. jT Romano, Shawna Marcano, Kirt Bailey and colleagues, with an educational georgie from [employer]. TUNDE-7 Assessment Billing TUNDE-7 Assessment Tool: TUNDE-7 Assessment 86804 Review of Systems Const All systems reviewed & are unremarkable except as noted in HPI and below Card Denies chest pain at rest, Denies chest pain with activity, Denies edema, Denies irregular heart rhythm, Denies claudication, Denies dyspnea, Denies dyspnea on exertion, Denies orthopnea, Denies paroxysmal nocturnal dyspnea and Denies slow heart rate Resp Denies cough, Denies dyspnea and Denies dyspnea on exertion GI Denies abdominal pain, Denies change in bowel habits, Denies excessive flatus, Denies nausea and Denies vomiting Physical exam (Primary Care) Vital Signs: Last Vital Signs BP 118/72 06/07/24 13:45 BMI result Body Mass Index 31.2 BMI Assessment/Plan discussion: High BMI High, discussed plan: lifestyle, weight reduction, dietary and physical activity Tobacco/Smoking Status: Tobacco use Status Tobacco use date assessed 06/07/24 06/07/24 13:50 Patient Tobacco Use Status Never used Tobacco 06/07/24 13:42 e-Cigarette/Vaping Use Never Used 06/07/24 13:42 PHQ-9: PHQ-9 Score PHQ-9: Total score 1 06/07/24 13:55 Depression Screening Interpretation: Negative Thrive Assessment: Date of Thrive Assessment Date Thrive assessed 06/07/24 06/07/24 13:42 Currently or been in a relationship where the following occur: No concerns reported Const Limitations: wheelchair Resp Effort & Inspection: normal respiratory effort Auscultation: clear to auscultation bilaterally Cardio Jugular venous distension: no JVD Rate: regular rate Rhythm: regular rhythm Heart sounds: S1 normal heart sound present and S2 normal heart sound present Extrem General: Yes full ROM Results AMB Hemoglobin A1c AMB Hemoglobin A1c 6.5 % Last Edit by CHRIS Womack on 06/07/24 13:5 3 Results Reviewed Results Reviewed: Laboratory Last Values Hgb A1c (Clinic) 6.5 % (4.0-6.0) H 06/07/24 13:38 Coding Level of Care Code Est Pt Level 4 (30403) Complex EM visit Add On G2211 Diagnoses Mild recurrent major depression F33.0 Hyperlipidemia LDL goal <70 E78.5 Magnesium deficiency E61.2 Type 2 diabetes mellitus without complication, without long-term current use of insulin E11.9 Diabetes mellitus type: type 2 Diabetes mellitus termite exterminator insulin use: without correction use Diabetes mellitus complication status: without complication Gastroesophageal reflux disease, unspecified whether esophagitis present K21.9 Esophagitis presence: esophagitis presence not specified Anemia, unspecified type D64.9 Anemia type: unspecified type Essential hypertension I10 BPPV (benign paroxysmal positional vertigo) H81.10 Additional Codes TUNDE-7 Assessment Billing - TUNDE-7 Assessment Tool: TUNDE-7 Assessment 92443 ([id number]) PHQ-9 - 18882 - PHQ-9 Billing: Yes ([id number]) Time Spent (min) 23 Assessment & Plan Assessment & Plan (1) Mild recurrent major depression: Code(s): F33.0 - Major depressive disorder, recurrent, mild Category: Medical (2) Hyperlipidemia LDL goal <70: Code(s): E78.5 - Hyperlipidemia, unspecified Category: Medical (3) Magnesium deficiency: Code(s): E61.2 - Magnesium deficiency Category: Medical (4) Diabetes mellitus: Code(s): E11.9 - Type 2 diabetes mellitus without complications Category: Medical Qualifiers: Diabetes mellitus type: type 2 Diabetes mellitus correction insulin use: without termite exterminator use Diabetes mellitus complication status: without complication Qualified Code(s): E11.9 - Type 2 diabetes mellitus without complications (5) GERD (gastroesophageal reflux disease): Code(s): K21.9 - Gastro-esophageal reflux disease without esophagitis Category: Medical Qualifiers: Esophagitis presence: esophagitis presence not specified Qualified Code(s): K21.9 - Gastro-esophageal reflux disease without esophagitis (6) Anemia: Code(s): D64.9 - Anemia, unspecified Category: Medical Qualifiers: Anemia type: unspecified type Qualified Code(s): D64.9 - Anemia, unspecified (7) Essential hypertension: Code(s): I10 - Essential (primary) hypertension Category: Medical (8) BPPV (benign paroxysmal positional vertigo): Code(s): H81.10 - Benign paroxysmal vertigo, unspecified ear Category: Medical Plan The patient's medical management includes maintaining current diabetes and hypertension medication regimens, ensuring effective control of her conditions. Her anemia requires adjustments in iron supplementation and intake to optimize absorption and is under close observation, with potential for hematology consultation if necessary. Medications for her hyperlipidemia and depression remain unchanged due to successful results. Current strategies for managing migraines and vertigo are appropriate, with no need for additional intervention. Her GERD treatment with pantoprazole should be sporadically used to minimize impact on magnesium levels, and supplementation should continue. Upcoming appointments will assess progress across all health aspects, and any further modifications will be made based on follow-up evaluations. Patient was informed and verbally consented to the use of an ambient scribe for clinic note documentation during this visit. During the visit, we discussed the current status of the patient's multiple chronic conditions, including diabetes, hyperlipidemia, and hypertension, which are well-managed under her current treatment plan. I emphasized the need for continued iron supplementation for her anemia and explained the possibility of reverting to hematology for further evaluation should her hemoglobin levels not improve. We reviewed lifestyle and dietary adjustments to enhance the absorption of her medications. The risks and benefits of continuing her current treatment regimens were discussed, highlighting improvements in A1c levels. We discussed managing her vertigo, migraines, and GERD within her existing therapy framework. I advised close monitoring and return visits to reassess her conditions and make necessary adjustments. Orders: Orders Complete Blood Count Auto Diff 4 Months D64.9 - Anemia, unspecified Comprehensive [place]. Panel Fast 4 Months F33.0 - Major depressive disorder, recurrent, mild AMB Hemoglobin A1c Today E11.9 - Type 2 diabetes mellitus without complications IRON PROFILE 4 Months D64.9 - Anemia, unspecified Vitamin D 25-OH Total 4 Months E55.9 - Vitamin D deficiency, unspecified Vitamin B12 and Folate 4 Months E53.8 - Deficiency of other specified B group vitamins Lipid Panel 4 Months E78.5 - Hyperlipidemia, unspecified Microalbumin, Random (w Creat) 4 Months R80.9 - Proteinuria, unspecified XR DEXA axial skeleton Today Z78.0 - Asymptomatic menopausal state Medications: Changed From magnesium 250 mg PO DAILY 90 days 90 tabs 0RF To magnesium 250 mg PO BID 180 tabs 1RF 90 days Patient Instructions: - Continue taking prescribed medications as directed. - Adjust timing of iron supplement intake with orange juice for better absorption. - Monitor hemoglobin and iron levels, with follow-up if anemia persists. - Use pantoprazole intermittently as needed to manage GERD. - Continue lifestyle modifications to support diabetes management. - Use sumatriptan for migraines as needed. - Follow up to reassess all chronic conditions and adjust care if needed.
[2024-06-07 13:45] VITALS: BP 118/72; BMI 31.2
== END 2024-06-07 14:08 | disposition home or self-care (01) ==
LOC: HO.HMCH 13:13
PROVIDERS: PCP Internal Medicine; Visit Provider Internal Medicine
DX: F33.0 Major depressive disorder, recurrent, mild (principal); E78.5 Hyperlipidemia, unspecified; E61.2 Magnesium deficiency; E11.9 Type 2 diabetes mellitus without complications; K21.9 Gastro-esophageal reflux disease without esophagitis; D64.9 Anemia, unspecified; I10 Essential (primary) hypertension; H81.10 Benign paroxysmal vertigo, unspecified ear

== ENCOUNTER → 2024-06-07 13:13 | Outpatient (BNVA) | payer OTHER, SELFPAY | PROVIDERS: PCP Internal Medicine; Visit Provider Internal Medicine | DX: E11.9 Type 2 diabetes mellitus without complications (principal); E78.5 Hyperlipidemia, unspecified; I10 Essential (primary) hypertension; D64.9 Anemia, unspecified; K21.9 Gastro-esophageal reflux disease without esophagitis; F33.0 Major depressive disorder, recurrent, mild; E61.2 Magnesium deficiency; H81.10 Benign paroxysmal vertigo, unspecified ear; E55.9 Vitamin D deficiency, unspecified; E53.8 Deficiency of other specified B group vitamins; R80.9 Proteinuria, unspecified; Z78.0 Asymptomatic menopausal state; Z79.899 Other long term (current) drug therapy | CPT/HCPCS: 83036; 96127; 99212 ==

== ENCOUNTER 2024-06-17 14:11 | Outpatient (REF) | payer OTHER, SELFPAY ==
--- NOTE | ~2024-06-17 | MM_ITS ---
EXAMINATION: DXA BONE DENSITY AXIAL HISTORY: Z78.0 - Asymptomatic menopausal state TECHNIQUE: [place] Dual energy absorptiometry (DEXA) of the lumbar spine, total left hip, and femoral neck was performed. COMPARISON: Comparison is made with the prior examination dated 01/28/2008. FINDINGS: The bone mineral density of the lumbar spine is 1.031 with a T-score of -1.2, and a Z-score of 0.3. This is indicative of osteopenia. This represents a BMD change of -4.1% compared to the prior exam. This is statistically significant. The bone mineral density of the left total hip is 0.700 with a T-score of -2.4, and a Z-score of -1.1. This is indicative of osteopenia. This represents a BMD change of -32.2% compared to the prior exam. This is statistically significant. The bone mineral density of the left femoral neck is 0.718 with a T-score of -2.3, and a Z-score of -0.7. This is indicative of osteopenia. This represents a BMD change of -18.7% compared to the prior exam. FRACTURE RISK: The FRAX index suggests a ten year probability of major osteoporotic fracture of 9.6%, and of hip fracture 2.4%. MM/XR DEXA axial skeleton IMPRESSION: Based on bone mineral density, and according to World Health Organization (WHO) criteria, the diagnosis is consistent with osteopenia. All bone density values are in grams per centimeter squared (g/cm2). Statistically, 68% of repeat scans fall within 1 SD (+/- 0.010 g/cm2 for AP spine L1-L4) and 1 SD (+/- 0.012 g/cm2 for femur total) FRAX is a trademark of the [employer] Met[employer], a World Health Organization (WHO) Collaborating Center. Electronically signed by: Tj Menard MD 06/17/2024 03:51 PM EDT
== END 2024-06-17 14:12 | disposition home or self-care (01) ==
LOC: HO.MAMMO 14:11
PROVIDERS: PCP Internal Medicine; Visit Provider Internal Medicine
DX: Z13.820 Encounter for screening for osteoporosis (principal); Z78.0 Asymptomatic menopausal state
CPT/HCPCS: 77080

== ENCOUNTER → 2024-06-17 14:30 | Outpatient (BNV) | payer OTHER, SELFPAY | PROVIDERS: PCP Internal Medicine; Visit Provider Radiology Diagnostic Radiology | DX: E28.39 Other primary ovarian failure (principal) | CPT/HCPCS: 77080 ==

== ENCOUNTER 2024-10-18 08:34 | Outpatient (REF) | payer OTHER, SELFPAY ==
[2024-10-18 08:47] LABS: MANUAL DIFF FLAG NO
[2024-10-18 09:13] LABS: Hematocrit 30.7 % (37.0-47.0); Hemoglobin 9.6 g/dl (12.0-16.0); Imm Gran Abs Auto 0.02 X10*3/uL (0.00-0.03); Imm Gran Pct Auto 0.3 % (0.0-0.4); Lymphocytes Absolute Auto 1.7 X10*3/uL (1.2-4.9); Mean Corpuscular HGB Conc 31.3 g/dl (31.0-35.0); Mean Corpuscular Hemoglobin 25.3 pg (27.0-33.0); Mean Corpuscular Volume 81.0 fL (80.0-98.0); NRBC Abs Auto 0.000 X10*3/uL (0.0-0.012); NRBC Pct Auto 0.0 /100WBC (0.0-0.2); Platelet Count 336 X10*3/uL (160-400); Red Blood Count 3.79 X10*6/uL (4.20-5.50); White Blood Count 6.9 X10*3/uL (4.8-10.8)
[2024-10-18 09:48] LABS: Alanine Aminotransferase < 6 U/L (0-31); Albumin Level 3.8 g/dL (3.5-5.0); Alkaline Phosphatase 100 U/L (39-117); Anion Gap 13 (12-20); Aspartate Amino Transferase 14 U/L (5-31); Blood Urea Nitrogen 24 mg/dL (9-16); Calcium 9.3 mg/dL (8.4-10.2); Carbon Dioxide 29 mmol/L (22-29); Chloride 102 mmol/L (96-108); Cholesterol 121 mg/dL (<200); Estimated Glomerular Filt Rate 57; HDL Cholesterol 49 mg/dL (>40); Iron 31 mcg/dL (30-160); Magnesium 2.0 mg/dL (1.6-2.6); Percent Iron Saturation 11 % (15-50); Potassium 4.5 mmol/L (3.3-5.1); Sodium 139 mmol/L (135-145); Total Iron Binding Capacity 281 mcg/dL (228-428); Total Protein 7.3 g/dL (6.5-8.0); Triglycerides 98 mg/dL (<150); Unsaturated Iron Binding 250 ug/dL
[2024-10-18 10:16] LABS: Folate 8.0 ng/mL (> or = 4.0); Vitamin B12 268 pg/mL (200-900)
== END 2024-10-18 08:35 | disposition home or self-care (01) ==
LOC: HO.LAB 08:34
PROVIDERS: PCP Internal Medicine; Visit Provider Internal Medicine
DX: F33.0 Major depressive disorder, recurrent, mild (principal); E53.8 Deficiency of other specified B group vitamins; D64.9 Anemia, unspecified; E55.9 Vitamin D deficiency, unspecified; E78.5 Hyperlipidemia, unspecified; R80.9 Proteinuria, unspecified; E61.2 Magnesium deficiency
CPT/HCPCS: 36415; 80053; 80061; 82043; 82306; 82570; 82607; 82746; 83540; 83735; 85025

== ENCOUNTER 2024-10-20 13:58 | Outpatient (AMB) | payer OTHER, SELFPAY ==
[2024-10-20 14:08] VITALS: BP 112/68; PULSE 101; O2SAT 97; BMI 30.9
--- NOTE | 2024-10-20 14:08 | MHC.PC.OV ---
Vital Signs 10/20/24 14:08 Height 4 ft 11 in Weight 152 lb 12.485 oz BMI 30.9 BP 112/68 Blood Pressure Location Lt brachial Position Sitting Pulse 101 H Pulse Source Pulse Oximeter Pulse Oximetry (%) 97 Oxygen Delivery Method Room Air Intake Visit Reasons: 4 month f/u Intake Note: Fax medical supplies to [employer] [place] fax [phone] Catheterization Laboratory Technician Required: No Accompanied by: Self / Same As Patient Allergies No Known Allergies Allergy (Verified 10/20/24 14:34) Medication List - Last Reconciled 10/20/24 by Ginger Monique MD acetaminophen ER 1,300 mg (2 x 650 mg) PO Q6H 30 days [adult diapers As directed] atorvastatin 10 mg PO DAILY 90 days blood sugar diagnostic (OneTouch Ultra Test strips) test once per day blood sugar diagnostic (FreeStyle Lite Strips) Use 1 strip once a day blood-glucose meter (OneTouch Ultra2 Meter) test once per day blood-glucose meter (FreeStyle Lite Meter kit) As directed cholecalciferol (vitamin D3) 25 mcg PO DAILY 90 days diclofenac sodium 1% (Aleve (diclofenac)) 2 grams topical QID 30 days ferrous sulfate 325 mg PO DAILY 90 days fluoxetine 10 mg PO DAILY 90 days incontinence pad, liner, disp Use 1 pad twice a day lancets (FreeStyle Lancets) Use 1 lancet once a day lancets (OneTouch UltraSoft 2 Lancet) test once per day lisinopril 5 mg PO DAILY 90 days loratadine (Allergy Relief (loratadine)) 10 mg PO DAILY 90 days magnesium 250 mg PO BID 90 days meclizine 12.5 mg PO TID PRN 30 days metformin 1,000 mg PO BID 30 days pantoprazole 40 mg PO DAILY 90 days pioglitazone 45 mg PO DAILY 90 days semaglutide (Ozempic) 2 mg (0.75 mL) subcut QWEEK 4 weeks sumatriptan succinate 25 mg PO ONCE PRN 30 days underpads (Bed Underpads) As directed [wheelchair with bigger wheels As directed] Tobacco use date assessed: 06/07/24 Fall risk assessment: No Falls in past year Last assessed Fall Risk: 10/20/24 Dental Screening Dental Screen Date: 06/07/24 HPI HPI Comments History of Present Illness Details The patient is a 69-year-old female presenting with a follow-up on her chronic conditions. Her hypertension is well-controlled with lisinopril, and her blood pressure is within the target range of less than 130/80 mmHg. She has been managing her diabetes mellitus with metformin, pioglitazone, and Ozempic, with her HbA1c slightly increased from 6.5% to 6.6%, indicating stable control. The patient has a history of depression with anxiety, currently managed with fluoxetine, and her PHQ-9 score is low at 1, suggesting minimal depressive symptoms. She also reports a history of anemia, which has improved from a hemoglobin level of 8.9 g/dL to 9.6 g/dL, though it remains below normal. The patient has osteopenia, diagnosed via a bone density scan in May, and is being treated with calcium and vitamin D supplementation. Her hyperlipidemia is managed with atorvastatin, maintaining her LDL cholesterol at 53 mg/dL and total cholesterol below 70 mg/dL. She experiences gastroesophageal reflux disease, for which she takes pantoprazole, and migraines managed with sumatriptan. The patient denies any history of smoking or alcohol use. Preventative care measures include regular mammography, with the next one scheduled for October. [facility] Medical History Mild recurrent major depression Urge urinary incontinence Lumbar degenerative disc disease BPPV (benign paroxysmal positional vertigo) Dizziness Essential hypertension Hypovitaminosis D Dyslipidemia Anemia GERD (gastroesophageal reflux disease) Diabetes mellitus Surgical History History of total abdominal hysterectomy History of tonsillectomy Family History Father Leukemia Mother Hypertension Colon cancer Paternal Aunt Uterine cancer Sister Stomach cancer Sister Thyroid cancer Paternal Grandmother Diabetes Paternal Grandfather Diabetes Social History Household Members: Spouse Housing: Apartment Are you a primary intensive care medicine specialist to a significant other at home: No Do you presently have visiting nurse or other home services: Yes Alcohol intake: never Patient Tobacco Use Status: Never used Tobacco Tobacco use type: Cigarette e-Cigarette/Vaping Use: Never Used Second Hand Smoke Exposure: No service: No Current occupational status: disabled Cognitive needs: Yes Hearing needs: No Vision needs: Yes Questionnaire PHQ-9 Over the last 2 weeks, how often have you been bothered by any of the following problems? 1. Little interest or pleasure in doing things: not at all 2. Feeling down, depressed, or hopeless: several days 3. Trouble falling or staying asleep, or sleeping too much: not at all 4. Feeling tired or having little energy: not at all 5. Poor appetite or overeating: not at all 6. Feeling bad about yourself - or that you are a failure or have let yourself or your family down: not at all 7. Trouble concentrating on things, such as reading the newspaper or watching television: not at all 8. Moving or speaking so slowly that other people could have noticed. Or the opposite - being so fidgety or restless that you have been moving around a lot more than usual: not at all 9. Thoughts that you would be better off or of hurting yourself in some way: not at all Total score: 1 Depression Screening Interpretation: Negative Depression Screening Done: Yes 45738 - PHQ-9 Billing: Yes Source: Developed by Drs. Tj Romano, Shawna Marcano, Kirt Bailey and colleagues, with an educational georgie from [employer]. Thrive Questionnaire Date Thrive assessed: 06/07/24 AUDIT C Alcohol Use Questionnaire (AUDIT-C) 1. How often do you have a drink containing alcohol?: Never Total Score: 0 Score Reviewed/Action Taken: No TUNDE-7 AMB Questionnaire TUNDE-7 Date TUNDE - 7 assessed: 06/07/24 Source: Developed by Drs. Tj Romano, Kirt Valles and colleagues, with an educational georgie from [employer]. Review of Systems Const All systems reviewed & are unremarkable except as noted in HPI and below Card Denies chest pain at rest, Denies chest pain with activity, Denies edema, Denies irregular heart rhythm, Denies claudication, Denies dyspnea, Denies dyspnea on exertion, Denies orthopnea, Denies paroxysmal nocturnal dyspnea and Denies slow heart rate Resp Denies cough, Denies dyspnea and Denies dyspnea on exertion GI Denies abdominal pain, Denies change in bowel habits, Denies excessive flatus, Denies nausea and Denies vomiting Denies urinary incontinence, Denies urinary hesitancy and Denies urinary urgency Musc Denies abnormal gait, Denies atrophy, Denies deformity and Denies limited range of motion Skin/Breast Denies bleeding lesions, Denies changing lesions and Denies rash Neuro Denies abnormal gait, Denies behavioral changes and Denies lack of coordination Psych Denies behavioral changes Physical exam (Primary Care) Vital Signs: Last Vital Signs Pulse 101 H 10/20/24 14:08 BP 112/68 10/20/24 14:08 Pulse Ox 97 10/20/24 14:08 Oxygen Delivery Method Room Air 10/20/24 14:08 BMI result Body Mass Index 30.9 Tobacco/Smoking Status: Tobacco use Status Tobacco use date assessed 06/07/24 10/20/24 14:09 Patient Tobacco Use Status Never used Tobacco 10/20/24 14:09 Tobacco use type Cigarette 10/20/24 14:09 e-Cigarette/Vaping Use Never Used 10/20/24 14:09 PHQ-9: PHQ-9 Score PHQ-9: Total score 1 10/20/24 14:37 Depression Screening Interpretation: Negative Thrive Assessment: Date of Thrive Assessment Date Thrive assessed 06/07/24 10/20/24 14:09 Resp Effort & Inspection: normal respiratory effort Auscultation: clear to auscultation bilaterally Cardio Jugular venous distension: no JVD Rate: regular rate Rhythm: regular rhythm Heart sounds: S1 normal heart sound present and S2 normal heart sound present Extrem General: Yes full ROM Results AMB Hemoglobin A1c AMB Hemoglobin A1c 6.6 % Last Edit by Lillian Eastman CMA on 10/20/24 14:29 Results Reviewed Results Reviewed: Laboratory Last Values Hgb A1c (Clinic) 6.6 % (4.0-6.0) H 10/20/24 14:08 Coding Level of Care Code Est Pt Level 4 (82731) Complex EM visit Add On G2211 Diagnoses Mild recurrent major depression F33.0 Essential hypertension I10 Hyperlipidemia LDL goal <70 E78.5 Type 2 diabetes mellitus without complication, without long-term current use of insulin E11.9 Diabetes mellitus type: type 2 Diabetes mellitus fdc insulin use: without superintendent container terminal use Diabetes mellitus complication status: without complication Additional Codes PHQ-9 - 49529 - PHQ-9 Billing: Yes ([id number]) Time Spent (min) 23 Assessment & Plan Assessment & Plan (1) Mild recurrent major depression: Code(s): F33.0 - Major depressive disorder, recurrent, mild Category: Medical (2) Essential hypertension: Code(s): I10 - Essential (primary) hypertension Category: Medical (3) Hyperlipidemia LDL goal <70: Code(s): E78.5 - Hyperlipidemia, unspecified Category: Medical (4) Diabetes mellitus: Code(s): E11.9 - Type 2 diabetes mellitus without complications Category: Medical Qualifiers: Diabetes mellitus type: type 2 Diabetes mellitus superintendent container terminal insulin use: without superintendent container terminal use Diabetes mellitus complication status: without complication Qualified Code(s): E11.9 - Type 2 diabetes mellitus without complications Plan Plan Patient was informed and verbally consented to the use of an ambient scribe for clinic note documentation during this visit. 1. Essential (primary) hypertension I10 The patient's hypertension is well-controlled with lisinopril, maintaining blood pressure within the target range of less than 130/80 mmHg. 2. Type 2 diabetes mellitus without complications E11.9 HCC 19 Diabetes management includes metformin, pioglitazone, and Ozempic, with HbA1c stable at 6.6%. 3. Other specified anxiety disorders F41.8 Depression with anxiety is managed with fluoxetine, and the patient's PHQ-9 score is low at 1, indicating minimal symptoms. 4. Anemia, unspecified D64.9 Anemia has improved from a hemoglobin level of 8.9 g/dL to 9.6 g/dL, though it remains below normal. 5. Other specified disorders of bone density and structure, unspecified site M85.80 Osteopenia is managed with calcium and vitamin D supplementation. 6. Hyperlipidemia, unspecified E78.5 Hyperlipidemia is controlled with atorvastatin, maintaining LDL cholesterol at 53 mg/dL and total cholesterol below 70 mg/dL. 7. Gastro-esophageal reflux disease without esophagitis K21.9 Gastroesophageal reflux disease is managed with pantoprazole. 8. Migraine, unspecified, not intractable, without status migrainosus G43.909 Migraines are managed with sumatriptan as needed. 9. Unspecified urinary incontinence R32 Incontinence is managed with the use of incontinence pads. Orders: Orders AMB Hemoglobin A1c Today Z13.9 - Encounter for screening, unspecified MM tomosynthesis screening BI Today Z12.31 - Encounter for screening mammogram for malignant neoplasm of breast Vitamin D 25-OH Total 4 Months E55.9 - Vitamin D deficiency, unspecified Lipid Panel 4 Months E78.5 - Hyperlipidemia, unspecified Microalbumin, Random (w Creat) 4 Months R80.9 - Proteinuria, unspecified Vitamin B12 and Folate 4 Months E53.8 - Deficiency of other specified B group vitamins Complete Blood Count Auto Diff 4 Months D64.9 - Anemia, unspecified IRON PROFILE 4 Months D64.9 - Anemia, unspecified Comprehensive [place]. Panel Fast 4 Months E11.9 - Type 2 diabetes mellitus without complications Medications: New disposable gloves As directed 200 ea 11RF N39.41 - Urge incontinence [wipes] As directed 240 ea 11RF N39.41 - Urge incontinence Refilled acetaminophen ER 1,300 mg (2 x 650 mg) PO Q6H 240 tabs 3RF 30 days atorvastatin 10 mg PO DAILY 90 tabs 3RF 90 days cholecalciferol (vitamin D3) 25 mcg PO DAILY 90 tabs 3RF 90 days lisinopril 5 mg PO DAILY 90 tabs 1RF 90 days sumatriptan succinate do not exceed 8 doses per 24 hrs 25 mg PO ONCE PRN 9 tabs 6RF migraine headache 30 days incontinence pad, liner, disp Use 1 pad twice a day 60 ea 11RF N39.41 - Urge incontinence ferrous sulfate 325 mg PO DAILY 90 tabs 3RF 90 days D64.9 - Anemia, unspecified magnesium 250 mg PO BID 180 tabs 1RF 90 days meclizine 12.5 mg PO TID PRN 90 tabs 1RF dizziness 30 days E11.9 - Type 2 diabetes mellitus without complications pioglitazone 45 mg PO DAILY 90 tabs 1RF 90 days pantoprazole 40 mg PO DAILY 90 tabs 3RF 90 days metformin 1,000 mg PO BID 60 tabs 6RF 30 days semaglutide (Ozempic) 2 mg (0.75 mL) subcut QWEEK 3 mL 6RF 4 weeks E11.9 - Type 2 diabetes mellitus without complications underpads (Bed Underpads) As directed 100 ea 11RF N39.41 - Urge incontinence
== END 2024-10-20 14:48 | disposition home or self-care (01) ==
LOC: HO.HMCH 13:58
PROVIDERS: PCP Internal Medicine; Visit Provider Internal Medicine
DX: F33.0 Major depressive disorder, recurrent, mild (principal); I10 Essential (primary) hypertension; E78.5 Hyperlipidemia, unspecified; E11.9 Type 2 diabetes mellitus without complications; Z13.9 Encounter for screening, unspecified

== ENCOUNTER → 2024-10-20 13:58 | Outpatient (BNVA) | payer OTHER, SELFPAY | PROVIDERS: PCP Internal Medicine; Visit Provider Internal Medicine | DX: I10 Essential (primary) hypertension (principal); E11.9 Type 2 diabetes mellitus without complications; M85.80 Other specified disorders of bone density and structure, unspecified site; K21.9 Gastro-esophageal reflux disease without esophagitis; F33.0 Major depressive disorder, recurrent, mild; E78.5 Hyperlipidemia, unspecified; F41.8 Other specified anxiety disorders; D64.9 Anemia, unspecified; G43.909 Migraine, unspecified, not intractable, without status migrainosus; N39.41 Urge incontinence; Z79.84 Long term (current) use of oral hypoglycemic drugs; Z79.899 Other long term (current) drug therapy | CPT/HCPCS: 83036; 96127; 99212 ==

== ENCOUNTER 2025-02-13 12:48 | Outpatient (AMB) | payer OTHER, SELFPAY ==
--- NOTE | 2025-02-13 13:05 | A.OFFPC_ITS ---
Vital Signs 02/13/25 13:14 Height 4 ft 11 in BP 94/46 L Blood Pressure Location Lt brachial Position Sitting Respiration 18 Pulse 94 Pulse Source Pulse Oximeter Temp 97.6 F Temp Source Temporal Artery Scan Pulse Oximetry (%) 98 Oxygen Delivery Method Room Air Comment unable to weight and measure py, in a wheel chair Intake Visit Reasons: Annual Exam- A1C Video Production Engineer Required: Yes Video Production Engineer Name: [email or web address] Accompanied by: Self / Same As Patient Allergies No Known Allergies Allergy (Verified 02/13/25 13:06) Tobacco use date assessed: 06/07/24 Fall risk assessment: No Falls in past year Last assessed Fall Risk: 02/13/25 Dental Screening Dental Screen Date: 06/07/24 HPI HPI Comments History of Present Illness Details This is a 70-year-old female that comes for her physical exam. She has diabetes mellitus type 2 and her A1c 6.6%. Declines flu vaccine. PCV 20 and Tdap vaccine up-to-date. Cologuard done 2022 and next Cologuard should be 2025. DEXA scan done 2024 and next DEXA should be 2026. Mammogram appointment for this month. She is in a wheelchair due to gait instability. She also has mild depression with a PHQ-9 of 9 and is on antidepressants. [facility] Medical History Mild recurrent major depression Urge urinary incontinence Lumbar degenerative disc disease BPPV (benign paroxysmal positional vertigo) Dizziness Essential hypertension Hypovitaminosis D Dyslipidemia Anemia GERD (gastroesophageal reflux disease) Diabetes mellitus Surgical History History of total abdominal hysterectomy History of tonsillectomy Family History (Updated 02/13/25 @ 13:30 by Ginger Monique MD) Father Leukemia Mother Hypertension Uterine cancer Paternal Aunt Uterine cancer Sister Stomach cancer Sister Thyroid cancer Paternal Grandmother Diabetes Paternal Grandfather Diabetes Social History Household Members: Spouse Housing: Apartment Are you a primary caretaker resort to a significant other at home: No Do you presently have visiting nurse or other home services: Yes Alcohol intake: never Patient Tobacco Use Status: Never used Tobacco Tobacco use type: Cigarette e-Cigarette/Vaping Use: Never Used Second Hand Smoke Exposure: No service: No Current occupational status: disabled Cognitive needs: Yes Hearing needs: No Vision needs: Yes Questionnaire PHQ-9 Over the last 2 weeks, how often have you been bothered by any of the following problems? 1. Little interest or pleasure in doing things: several days 2. Feeling down, depressed, or hopeless: more than half the days 3. Trouble falling or staying asleep, or sleeping too much: more than half the days 4. Feeling tired or having little energy: more than half the days 5. Poor appetite or overeating: several days 6. Feeling bad about yourself - or that you are a failure or have let yourself or your family down: several days 7. Trouble concentrating on things, such as reading the newspaper or watching television: not at all 8. Moving or speaking so slowly that other people could have noticed. Or the opposite - being so fidgety or restless that you have been moving around a lot more than usual: not at all 9. Thoughts that you would be better off or of hurting yourself in some way: not at all Total score: 9 Depression Screening Interpretation: Positive Depression Screening Follow-up: Existing condition, In treatment and Follow-up Visit Requested Depression Screening Done: Yes 41958 - PHQ-9 Billing: Yes Source: Developed by Drs. Tj Romano, Shawna Marcano, Kirt Bailey and colleagues, with an educational georgie from [employer]. Thrive Questionnaire Date Thrive assessed: 06/07/24 I am a: Patient What is your living situation today?: I have a steady place to live Within the past 12 months, did the food you bought not last and you didn't have the money to get more?: Never true Within the past 12 months, did you worry whether your food would run out before you got money to buy more?: Never true Do you have trouble paying for medicines?: No Do you have trouble getting transportation to medical appointments?: No Do you have trouble paying your heating and electricity bill?: No Do you have trouble taking care of your child, family member or friend?: No Do you have trouble with day-to-day activities such as bathing, preparing meals, shopping, managing finances, etc.?: No Are you currently unemployed and looking for a job?: Yes Are you interested in more education?: No Please select the resources that you would like help with: None Currently or been in a relationship where the following occur: No concerns reported THRIVE Score: 0 AUDIT C Alcohol Use Questionnaire (AUDIT-C) 1. How often do you have a drink containing alcohol?: Never 3. How often do you have six or more drinks on one occasion?: Never Total Score: 0 Score Reviewed/Action Taken: No TUNDE-7 AMB Questionnaire TUNDE-7 Date TUNDE - 7 assessed: 06/07/24 Feeling nervous, anxious, or on edge: 0 = Not at all Not being able to stop or control worryin = Not at all Worrying too much about different things: 0 = Not at all Trouble relaxin = Not at all Being so restless that it is hard to sit still: 0 = Not at all Becoming easily annoyed or irritable: 0 = Not at all Feeling afraid as if something awful might happen: 0 = Not at all Total TUNDE-7 score (0-4 normal; 5-9 mild; 10-14 moderate; 15-21 severe): 0 Source: Developed by Drs. Tj Romano, Shawna Marcano, Kirt Bailey and colleagues, with an educational georgie from [employer]. TUNDE-7 Assessment Billing TUNDE-7 Assessment Tool: TUNDE-7 Assessment 14417 Review of Systems Const All systems reviewed & are unremarkable except as noted in HPI and below Card Denies chest pain at rest, Denies chest pain with activity, Denies edema, Denies irregular heart rhythm, Denies claudication, Denies dyspnea, Denies dyspnea on exertion, Denies orthopnea, Denies paroxysmal nocturnal dyspnea and Denies slow heart rate Resp Denies cough, Denies dyspnea and Denies dyspnea on exertion Physical exam (Primary Care) Tobacco/Smoking Status: Tobacco use Status Tobacco use date assessed 06/07/24 02/13/25 13:05 Patient Tobacco Use Status Never used Tobacco 02/13/25 13:05 Tobacco use type Cigarette 02/13/25 13:05 e-Cigarette/Vaping Use Never Used 02/13/25 13:05 PHQ-9: PHQ-9 Score PHQ-9: Total score 9 02/13/25 13:05 Depression Screening Interpretation: Positive Depression Screening Follow-up: Existing condition, In treatment and Follow-up Visit Requested Thrive Assessment: Date of Thrive Assessment Date Thrive assessed 06/07/24 02/13/25 13:05 Currently or been in a relationship where the following occur: No concerns reported [facility] Head: Yes normal to inspection, Yes normocephalic and Yes atraumatic Ears: external ears normal Eyes General: appearance normal, both eyes and all related structures Eyelids: Yes eyelids normal Conjunctivae: conjunctivae normal Neck Neck: Yes normal visual inspection and Yes supple Resp Effort & Inspection: normal respiratory effort Auscultation: clear to auscultation bilaterally Cardio Jugular venous distension: no JVD Rate: regular rate Rhythm: regular rhythm Heart sounds: S1 normal heart sound present and S2 normal heart sound present GI Inspection: Yes normal to inspection Palpation (GI): Soft to palpation and nontender Auscultation: normal bowel sounds Skin General skin exam: no rashes or lesions noted Neuro General: no focal motor deficits Extrem General: Yes full ROM Psych Appearance: grossly normal Coding Level of Care Code Est Pt Prev Care >65y(84329) Diagnoses Physical exam Z00.00 Type 2 diabetes mellitus without complication, without long-term current use of insulin E11.9 Diabetes mellitus type: type 2 Diabetes mellitus director long term care insulin use: without director long term care use Diabetes mellitus complication status: without complication Mild recurrent major depression F33.0 Additional Codes PHQ-9 - 86447 - PHQ-9 Billing: Yes ([id number]) TUNDE-7 Assessment Billing - TUNDE-7 Assessment Tool: TUNDE-7 Assessment [id number] ([id number]) Time Spent (min) 30 Assessment & Plan Assessment & Plan (1) Physical exam: Code(s): Z00.00 - Encounter for general adult medical examination without abnormal findings Category: Medical (2) Diabetes mellitus: Code(s): E11.9 - Type 2 diabetes mellitus without complications Category: Medical Qualifiers: Diabetes mellitus type: type 2 Diabetes mellitus director long term care insulin use: without director long term care use Diabetes mellitus complication status: without complication Qualified Code(s): E11.9 - Type 2 diabetes mellitus without complications (3) Mild recurrent major depression: Code(s): F33.0 - Major depressive disorder, recurrent, mild Category: Medical Plan Repeat in a year. Keep A1c less than 7%. Continue diabetic eye exam yearly. Continue yearly mammograms. Next Cologuard 2025. Next DEXA scan 2026. Orders: Orders Lipid Panel 4 Months E78.5 - Hyperlipidemia, unspecified Microalbumin, Random (w Creat) 4 Months R80.9 - Proteinuria, unspecified AMB Hemoglobin A1c Today Z13.9 - Encounter for screening, unspecified Complete Blood Count Auto Diff 4 Months D64.9 - Anemia, unspecified Vitamin D 25-OH Total 4 Months E55.9 - Vitamin D deficiency, unspecified Vitamin B12 and Folate 4 Months E53.8 - Deficiency of other specified B group vitamins IRON PROFILE 4 Months D64.9 - Anemia, unspecified Comprehensive [place]. Panel Fast 4 Months E11.9 - Type 2 diabetes mellitus without complications Medications: New cyclobenzaprine 5 mg PO TID PRN 90 tabs 0RF muscle spasm 30 days
[2025-02-13 13:14] VITALS: BP 94/46; PULSE 94; RESP 18; TEMP 36.4; O2SAT 98
--- OUTSIDE RECORDS SUMMARY | 2025-02-13 15:57 | XMS_ITS | Continuity of Care Document ---
Author Name [facility], Medical Address [address] [place] [id number] Organization Unknown Address [address] [place] [id number] Medications No known medications Problems No known problems
--- OUTSIDE RECORDS SUMMARY | 2025-02-13 15:57 | XMS_ITS | Continuity of Care Document ---
Author Name [facility], Medical Address [address] [place] [id number] Organization Unknown Address [address] [place] [id number] Medications No known medications Problems No known problems
--- OUTSIDE RECORDS SUMMARY | 2025-02-13 15:57 | XMS_ITS | Encounter Summary ---
Author Organization [facility] Address [address] [place] [address] Encounters * CPT with [facility] on 2025-02-08 { reasonForRequest : pt is experiencing lower back pain, spreads to hip , patientReports : , denies :[ Falls with head strike and LOC ,"Falls from a standing position, no LOC, patient is amnestic to the event , Falls with i solated injury and deformity noted to limb , Falls with inability to move post fall , Cool extremities after fall or injury , Weakness with fall, able to move all extremities ], chiefComplaints : Back Pain , pmh : Hyperlipidemia, Hypertension, Diabetes Mellitus Type 2, Chronic Back Pain , allergies : No Known Drug Allergies , otherAllergies : , painAssessment : &quot ;, visitOutcome : , additionalComments : 70 y.o female complains of Back Pain\nPatient's TECHNICAL ASSISTANT making referral\nPatient has chronic low back pain. radiating around and down left hip. Received cortisone injection last month and it did not go away. describes as a sharp pain. having difficulty moving or sitting still. denies any falls or injuries. \ntried ICY HOT, massage, Tylenol with no relief. \ndenies any kidney issues denies any blood thinners. \nis aware we do not have Xray capability. \n\n\nI provided information on the mobile health provider response time and advised the patient and/or caregiver to monitor reported signs and symptoms. I discussed the warning signs of when to seek emergency care. } [facility] makes pt contact a 70 yo F CC of LL back pain. [facility] obtains vital signs and utilizes language line interpreters. PT explains for one month she has intermittent pain in the LL back region. PT comes in waves and is a pulsating pain. Pain on palpation and ROM. NO fevers, no chest pain, no issues with urination. PT explains sometimes the pain radiates to her flank and abdomen. PT denies a hx of kidney stones or kidney issues. No recent falls, traumas, or surgeries. PT using tylenol and ibuprofen with no relief. PT has a PCP appointment on the of this month. When pt was in [place] PT explains the doctors there said it is likely muscle spasms. [facility] contacts [facility] and explains above mentioned. [facility] orders 30mg of toradol IM and sends a prescription of felxiril to PT pharmacy. PT has no known medication allergies. Toradol given IM in leftdeltoid. Red flags such as chestpain, n/v/d, AMS, new onset fever, worsening symptoms pt should be seen in the emergency department. PT understands. [facility] clear. IV_(FLUIDS_AND/OR_MEDICATION), MEDICATION_IM, ORAL_MEDICATION, EKG Written by [facility] on 2025-02-08
== END 2025-02-13 13:38 | disposition home or self-care (01) ==
LOC: HO.HMCH 12:49
PROVIDERS: PCP Internal Medicine; Visit Provider Internal Medicine
DX: Z00.00 Encounter for general adult medical examination without abnormal findings (principal); E11.9 Type 2 diabetes mellitus without complications; F33.0 Major depressive disorder, recurrent, mild

== ENCOUNTER → 2025-02-13 12:48 | Outpatient (BNVA) | payer OTHER, SELFPAY | PROVIDERS: PCP Internal Medicine; Visit Provider Internal Medicine | DX: Z00.00 Encounter for general adult medical examination without abnormal findings (principal); E11.9 Type 2 diabetes mellitus without complications; F33.0 Major depressive disorder, recurrent, mild; E55.9 Vitamin D deficiency, unspecified; D64.9 Anemia, unspecified; E53.8 Deficiency of other specified B group vitamins; Z13.31 Encounter for screening for depression | CPT/HCPCS: 96127; 99397 ==